=== PATIENT | female | born 1955 | race Caucasian/White ===

== ENCOUNTER 2016-11-25 06:42 | Observation (INO) ==
--- NOTE | 2016-11-25 06:48 | EKG Report ---
Test Performed on : 11/25/2016 06:40:47 AM Test Reason : SOB Blood Pressure : / mmHG Vent. Rate : 081 BPM Atrial Rate : 081 BPM P-R Int : 174 ms QRS Dur : 070 ms QT Int : 358 ms P-R-T Axes : 061 061 057 degrees QTc Int : 415 ms Normal sinus rhythm. Cannot rule out Anterior infarct , age undetermined Abnormal ECG When compared with ECG of 04-MAR-2016 08:00, Vent. rate has decreased BY 41 BPM Unconfirmed Result
[2016-11-25] MEDS ORDERED: NS 1,000 ML IV ONE (07:03)
[2016-11-25] MEDS ORDERED: SOLU-MEDROL IV ONE (07:03)
[2016-11-25 07:14] LABS: MANUAL DIFF NEEDED? NO
[2016-11-25 07:24] LABS: BASO% 0.3 % (0.0-0.8); EOS% 1.5 % (0.0-10.0); HEMATOCRIT 35.1 % (37.0-47.0); HEMOGLOBIN 12.8 g/dL (12.0-16.0); LYMPH% 18.3 % (20.5-51.1); MCH 33.4 PG (27-31); MCHC 36.5 g/dL (33-37); MCV 91.6 FL (81-99); MONO% 10.7 % (1.7-9.3); MPV 11.2 FL (7.4-10.4); NEUT% 69.2 % (42.2-75.2); PLT 123 X1000 (130-400); RBC 3.83 XMIL (4.2-5.4)
[2016-11-25 07:31] LABS: INR 1.01; PROTIME 10.6 Seconds (9.2-11.7)
[2016-11-25 07:51] LABS: AGAP 14; ALBUMIN 3.6 g/dL (3.5-5.0); ALKALINE PHOSPHATASE 83 U/L (32-104); BUN 8 mg/dL (8-22); CALCIUM 8.8 mg/dL (8.8-10.2); CHLORIDE 99 mmol/L (98-107); CK PROFILE 57 U/L (24-173); COSMO 267; GOT 38 U/L (10-30); GPT 33 U/L (10-36); MAGNESIUM 1.6 mg/dL (1.5-2.7); POTASSIUM 3.2 mmol/L (3.5-5.1); SODIUM 134 mmol/L (136-145); TCO2 21 mmol/L (25-35); TOTAL BILIRUBIN 0.67 mg/dL (0.20-1.00)
[2016-11-25 08:12] LABS: ALLEN TEST NO; BE 0.2 mmoll (-3.0-3.0); BLOOD TYPE ARTERIAL; DRAW SITE R BRACHIAL; METHB 1.9 % (0.0-1.5); O2(CT) 15.3 mL/dL (15.0-23.0); PCO2(98.6) 29 mmHg (35-45); PO2(98.6) 62 mmHg (60-100); SAMPLE BLOOD; SAO2 97.6 % (95.0-100.0); THB 11.7 g/dL (11.5-17.4)
[2016-11-25 08:13] LABS: MODALITY ROOM AIR
--- NOTE | 2016-11-25 08:18 | Diag Imaging Result Document ---
PROCEDURE NAME: CHEST-2 VIEWS - 11/25/2016 FRONTAL AND LATERAL CHEST, TWO VIEWS: COMPARISON: 09/02/2016. FINDINGS: There is a small infiltrate anteriorly in the lower right lung. I believe this is in the right middle lobe. The heart is not enlarged. The vessels are not distended. No pleural effusions. No free air beneath the diaphragm. There has been prior surgery to the lower neck. IMPRESSION: Small right basilar pneumonia.
[2016-11-25 09:59] LABS: URINE CULTURE NEEDED? NO; URINE MICRO REVIEW NEEDED? NO; URINE SOURCE CLEAN CATCH
[2016-11-25 10:20] LABS: BILIRUBIN URINE NEGATIVE (NEGATIVE); BLOOD URINE NEGATIVE (NEGATIVE); COLOR STRAW; GLUCOSE URINE NEGATIVE (NEGATIVE); LEUKOCYTES URINE NEGATIVE (NEGATIVE); NITRITE URINE NEGATIVE (NEGATIVE); PH URINE 6.5; PROTEIN URINE NEGATIVE (NEGATIVE); SP GRAVITY URINE 1.001; TURBIDITY URINE CLEAR (CLEAR); UR EPITHELIAL CELLS <10 /HPF (<10); URINE BACTERIA NEGATIVE /HPF; URINE RBC <10 /HPF (<10); URINE WBC <10 /HPF (<10); UROBILINOGEN URINE NORMAL (NORMAL)
[2016-11-25] MEDS ORDERED: KLOR-CON PO ONE (10:27)
[2016-11-25] MEDS ORDERED: LEVAQUIN PO ONE (10:36)
[2016-11-25] MEDS ORDERED: ROCEPHIN 1 GM/NS 1 GM/50 ML IVPB IV ONE (10:36)
[2016-11-25] MEDS ORDERED: LEVAQUIN 500 MG/D5W 500 MG/100 ML IVPB IV ONE (10:45)
--- NOTE | 2016-11-25 10:46 | PROVIDER DOCUMENTATION ---
This chart was entered by Matthieu Cruz Scribe, acting as scribe for Deloris Rios MD. HPI-Respiratory General - General Chief Complaint: General Adult Stated Complaint: sob Time Seen by Provider: 11/25/16 06:43 Source: patient Allergies/Adverse Reactions: Patient Allergies Allergy/AdvReac Type Severity Reaction Status Date / Time No Known Allergies Allergy Verified 03/04/16 08:44 Home Medications: Home Medication List Medication Instructions Recorded Confirmed Last Taken Type Budesonide/Formoterol Inhaler 2 puff INH BID 08/18/15 03/04/16 03/04/16 History [Symbicort 160/4.5 Microgm Inhaler] Fluticasone 50 Mcg Nasal [place] 1 spray ENRIQUE DAILY #1 bottle 08/18/15 03/04/16 Rx [Flonase] Montelukast [Singulair] 10 mg PO DAILY 08/18/15 03/04/16 03/04/16 History Hydrocodone/Acetaminophen [[place] 1 each PO BID PRN 12/08/15 03/04/16 03/03/16 History 7.5-325 Tablet] Tramadol [Ultram] 50 mg PO Q8HR PRN 12/08/15 03/04/16 03/03/16 History Albuterol 2.5MG/Ipratrop 0.5MG 3 ml INH [id number] #0 neb 01/17/16 03/04/16 Rx [Duoneb (A & A)] Budesonide/Formoterol Inhaler 2 puff INH RTBID #0 inhaler 01/17/16 03/04/16 Rx [Symbicort 160/4.5 Microgm Inhaler] Ipratropium [place] Neb [Atrovent 1 dose INH DIRECTED 03/02/16 03/04/1603/04 History Neb] Acetaminophen [Tylenol] 500 mg PO Q6H PRN PRN #0 tablet 03/07/16 Unknown Rx Codeine/Promethazine [Phenergan 1 - 2 tsp PO TID PRN PRN #7 udc 03/07/16 Unknown Rx with Codeine Liquid] Dimethicone/Oxybenzone Oral 1 gm TOP PRN PRN #0 stick 03/07/16 Unknown Rx [Blistex Medicated Levi Lip Oral] Levofloxacin [Levaquin] 500 mg PO DAILY #7 tablet 03/07/16 Unknown Rx Nicotine Patch [Nicoderm Patch] 21 mg TD DAILY #0 patch.[id number] 03/07/16 Unknown Rx Prednisone 5 mg PO DAILY #7 tablet 03/07/16 Unknown Rx - History of Present Illness-Resp Nature of Presenting Problem: patient is a 61 y/o F that presents to the ER with cough/congestion, shortness of breath, and right sided chest pain x 4 days. patient reports having cough for over a years since she had pneumonia. Patient denies fever/chills, sore throat, or earache. Hasn't been exposed to toxic vapors. Smokes a pack per day. Quality of Pain: reports: sharp Severity in ED: reports: mild, moderate Onset/Duration: reports: gradual, 4 days ago Timing: reports: still present, constant Context: denies: sports/exercise, aspiration/choking Cough Quality/Degree: reports: mild, productive cough Episode Frequency: occasional episodes Current Respiratory Medication Therapy: Initiated see nurses note Modifying Factors: worse with: coughing Associated Symptoms: reports: chest pain/soreness, cough, shortness of breath, short of breath. denies: flu-like symptoms, nasal congestion, nasal drainage Similar Symptoms Previously?: Yes Recently seen or treated by another doctor?: No Review of Systems - Adult - REVIEW OF SYSTEMS - ADULT Constitutional: denies: chills, fever Eyes: denies: decreased vision, blurred vision, double vision Ears, Nose, Mouth & Throat: denies: ear discharge, ear pain, sinus problem, throat pain, throat swelling Cardiovascular: reports: chest pain (right sided). denies: palpitations, syncope Respiratory: reports: cough, shortness of breath Gastrointestinal: reports: no symptoms reported Genitourinary: reports: no symptoms reported Musculoskeletal: reports: no symptoms reported Integumentary: reports: no symptoms reported Neurological: reports: no symptoms reported Psychiatric: reports: no symptoms reported Endocrine: reports: no symptoms reported Hematologic/Lymphatic: reports: no symptoms reported Allergic/Immunologic: reports: no symptoms reported All Other Systems: Reviewed and Negative Past History - Adult - PAST MEDICAL HISTORY-ADULT Review of Records: reports: Old Records Reviewed, Nursing Assessment Review, Medications Reviewed Respiratory: reports: COPD - PRIOR SURGERIES/PROCEDURES Surgical/Procedure History: reports: hysterectomy, back/neck (neck) - PRIOR HOSPITALIZATIONS Prior Hospitalizations: reports: none - IMMUNIZATION STATUS Childhood Immunizations: See Nurse Assessment Flu Vaccine: See Nurse Assessment - FAMILY HISTORY Family History: reviewed, not pertinent - SOCIAL HISTORY Smoking: cigarettes, less than 1 pack/day Alcohol Use Frequency: every day Number of drinks per typical drinking period:: 3-4 drinks Living Situation: family Physical Exam-General - PHYSICAL EXAM-ADULT Initial Vital Signs Reviewed: Yes - CONSTITUTIONAL General Appearance: alert, no apparent distress, thin - EYES Eyes: PERRL/EOMI, pink conjunctivae - HEAD, EARS, NOSE, MOUTH & THROAT HENMT: normocephalic/atraumatic, moist mucous membranes, normal ENT inspection - NECK Neck: full range of motion, normal inspection - RESPIRATORY Respiratory: no respiratory distress, no accessory muscle use, rhonchi, increased rate - CARDIOVASCULAR Cardiovascular: regular rate, rhythm, no edema, no murmur - GASTROINTESTINAL (ABDOMEN) Abdominal Exam: normal bowel sounds, non tender, soft, no organomegaly, no pulsatile mass - MUSCULOSKELETAL Back Exam: no CVA tenderness, no vertebral tenderness Extremity: normal range of motion, normal inspection, no pedal edema - SKIN Integumentary: normal color, warm/dry - NEUROLOGIC Neurologic: grossly normal, no motor/sensory deficits - PSYCHIATRIC Psych/Mental Status: normal mood/affect, oriented x 3 Progress - PLAN OF CARE/RESULTS Progress/Plan/Lab Results: Vital Signs - 8 hr 11/25/16 06:50 11/25/16 07:53 11/25/16 08:42 Temperature 98.8 F Pulse Rate 82 79 80 Respiratory Rate 19 28 H 26 H Blood Pressure 117/66 115/57 111/68 O2 Sat by Pulse Oximetry 98 94 L 95 Laboratory Results - last 24 hr 11/25/16 11/25/16 11/25/16 06:50 06:50 06:50 WBC 6.55 RBC 3.83 L Hgb 12.8 Hct 35.1 L MCV 91.6 MCH 33.4 H MCHC 36.5 RDW Std Deviation 11.9 Plt Count 123 L MPV 11.2 H Immature Gran % (Auto) 0.0 Neut % (Auto) 69.2 Lymph % (Auto) 18.3 L [place] % (Auto) 10.7 H Eos % (Auto) 1.5 Baso % (Auto) 0.3 Immature Gran # (Auto) 0.00 Neut # (Auto) 4.53 Lymph # (Auto) 1.20 [place] # (Auto) 0.70 H Eos # (Auto) 0.10 Baso # (Auto) 0.02 PT INR PTT (Actin FS) D-Dimer 1.78 H Specimen Type Sample Site pH pCO2 pO2 HCO3 Base Excess Oxyhemoglobin ABG O2 Sat (Calculated) ABG O2 Saturation ABG Carboxyhemoglobin ABG Methemoglobin Pablo Test A-a O2 Difference Total Hemoglobin Lactate Blood Gas Modality FiO2 % Sodium 134 L Potassium 3.2 L Chloride 99 Carbon Dioxide 21 L Anion Gap 14 BUN 8 Creatinine 0.6 Estimated GFR/1.73 m2 > 60 BUN/Creatinine Ratio 13 Glucose 100 Calculated Osmolality 267 Calcium 8.8 Magnesium 1.6 Total Bilirubin 0.67 AST 38 H ALT 33 Alkaline Phosphatase 83 Creatine Kinase 57 Troponin T Stp-E-Lexjizuwxpg Pept Total Protein 7.0 Albumin 3.6 Globulin 3.4 Albumin/Globulin Ratio 1.1 Plasma Lactate Urine Color Urine Turbidity Urine pH Ur Specific [place] Urine Protein Ur Glucose (Stick) Ur Ketones (Stick) Urine Blood Urine Nitrite Urine Bilirubin Urobilinogen Dipstick Urine Leukocytes Urine WBC (Auto) Urine RBC (Auto) U Epithel Cells (Auto) Urine Bacteria (Auto) 11/25/16 11/25/16 11/25/16 06:50 06:50 06:50 WBC RBC Hgb Hct MCV MCH MCHC RDW Std Deviation Plt Count MPV Immature Gran % (Auto) Neut % (Auto) Lymph % (Auto) [place] % (Auto) Eos % (Auto) Baso % (Auto) Immature Gran # (Auto) Neut # (Auto) Lymph # (Auto) [place] # (Auto) Eos # (Auto) Baso # (Auto) PT 10.6 INR 1.01 PTT (Actin FS) 28.0 D-Dimer Specimen Type Sample Site pH pCO2 pO2 HCO3 Base Excess Oxyhemoglobin ABG O2 Sat (Calculated) ABG O2 Saturation ABG Carboxyhemoglobin ABG Methemoglobin Pablo Test A-a O2 Difference Total Hemoglobin Lactate Blood Gas Modality FiO2 % Sodium Potassium Chloride Carbon Dioxide Anion Gap BUN Creatinine Estimated GFR/1.73 m2 BUN/Creatinine Ratio Glucose Calculated Osmolality Calcium Magnesium Total Bilirubin AST ALT Alkaline Phosphatase Creatine Kinase Troponin T < 0.010 Fjx-T-Louqeceectp Pept 56 Total Protein Albumin Globulin Albumin/Globulin Ratio Plasma Lactate Urine Color Urine Turbidity Urine pH Ur Specific [place] Urine Protein Ur Glucose (Stick) Ur Ketones (Stick) Urine Blood Urine Nitrite Urine Bilirubin Urobilinogen Dipstick Urine Leukocytes Urine WBC (Auto) Urine RBC (Auto) U Epithel Cells (Auto) Urine Bacteria (Auto) 11/25/16 11/25/16 11/25/16 07:32 08:00 09:35 WBC RBC Hgb Hct MCV MCH MCHC RDW Std Deviation Plt Count MPV Immature Gran % (Auto) Neut % (Auto) Lymph % (Auto) [place] % (Auto) Eos % (Auto) Baso % (Auto) Immature Gran # (Auto) Neut # (Auto) Lymph # (Auto) [place] # (Auto) Eos # (Auto) Baso # (Auto) PT INR PTT (Actin FS) D-Dimer Specimen Type ARTERIAL Sample Site R BRACHIAL pH 7.50 H pCO2 29 L pO2 62 HCO3 25.0 Base Excess 0.2 Oxyhemoglobin 92.9 L ABG O2 Sat (Calculated) 15.3 ABG O2 Saturation 97.6 ABG Carboxyhemoglobin 2.90 H ABG Methemoglobin 1.9 H Pablo Test NO A-a O2 Difference 51.0 Total Hemoglobin 11.7 Lactate 0.70 Blood Gas Modality ROOM AIR FiO2 % 21.0 Sodium Potassium Chloride Carbon Dioxide Anion Gap BUN Creatinine Estimated GFR/1.73 m2 BUN/Creatinine Ratio Glucose Calculated Osmolality Calcium Magnesium Total Bilirubin AST ALT Alkaline Phosphatase Creatine Kinase Troponin T Zji-B-Wzlkjlpbdee Pept Total Protein Albumin Globulin Albumin/Globulin Ratio Plasma Lactate 1.0 Urine Color STRAW Urine Turbidity CLEAR Urine pH 6.5 Ur Specific [place] 1.001 Urine Protein NEGATIVE Ur Glucose (Stick) NEGATIVE Ur Ketones (Stick) NEGATIVE Urine Blood NEGATIVE Urine Nitrite NEGATIVE Urine Bilirubin NEGATIVE Urobilinogen Dipstick NORMAL Urine Leukocytes NEGATIVE Urine WBC (Auto) <10 Urine RBC (Auto) <10 U Epithel Cells (Auto) <10 Urine Bacteria (Auto) NEGATIVE Orders Category Date Time Status Cardiac Monitoring DIRECTED Care 11/25/16 06:57 Active Saline Loc NOW Care 11/25/16 06:57 Active ANGIOGRAM/PULMONARY ARTERIES [CT] Stat Exams 11/25/16 09:19 Taken CHEST-2 VIEWS [RAD] Stat Exams 11/25/16 06:57 Completed ABG [RESP] Routine Lab 11/25/16 08:00 Completed BLOOD CULTURE [BLDCUL] Stat Lab 11/25/16 06:50 Results CBC WITH ELECTRONIC DIFF [HEME] Stat Lab 11/25/16 06:50 Completed CK PROFILE [SP CHEM] Stat Lab 11/25/16 06:50 Completed COMPREHENSIVE METABOLIC PANEL [CHEM] Stat Lab 11/25/16 06:50 Completed D-DIMER [CHEM] Stat Lab 11/25/16 06:50 Completed LACTATE, PLASMA [CHEM] Stat Lab 11/25/16 07:32 Completed MAGNESIUM [CHEM] Stat Lab 11/25/16 06:50 Completed PRO B-NATRIURETIC PEPTIDE Stat Lab 11/25/16 06:50 Completed PROTIME WITH INR [COAG] Stat Lab 11/25/16 06:50 Completed PTT [COAG] Stat Lab 11/25/16 06:50 Completed TROPONIN T Stat Lab 11/25/16 06:50 Completed UA NIMS W/REFLEX CULT [URINALYSIS] Stat Lab 11/25/16 09:35 Completed 0.9% Sodium Chloride Inj [Ns] 1,000 ml Med 11/25/16 07:03 Discontinued IV 999 mls/hr Methylprednisolone Sod Succ [Solu-Medrol] Med 11/25/16 07:03 Discontinued 125 mg IV NOW ONE Potassium Chloride E.r. [Klor-Con] Med 11/25/16 10:27 Discontinued 40 meq PO NOW ONE EKG [EKG] Stat Ther 11/25/16 06:42 Draft EKG [EKG] Stat Ther 11/25/16 06:57 Ordered will be paged for admission Orders Category Date Time Status Cardiac Monitoring DIRECTED Care 11/25/16 06:57 Active Saline Loc NOW Care 11/25/16 06:57 Active ANGIOGRAM/PULMONARY ARTERIES [CT] Stat Exams 11/25/16 09:19 Taken CHEST-2 VIEWS [RAD] Stat Exams 11/25/16 06:57 Completed ABG [RESP] Routine Lab 11/25/16 08:00 Completed BLOOD CULTURE [BLDCUL] Stat Lab 11/25/16 06:50 Results CBC WITH ELECTRONIC DIFF [HEME] Stat Lab 11/25/16 06:50 Completed CK PROFILE [SP CHEM] Stat Lab 11/25/16 06:50 Completed COMPREHENSIVE METABOLIC PANEL [CHEM] Stat Lab 11/25/16 06:50 Completed D-DIMER [CHEM] Stat Lab 11/25/16 06:50 Completed LACTATE, PLASMA [CHEM] Stat Lab 11/25/16 07:32 Completed MAGNESIUM [CHEM] Stat Lab 11/25/16 06:50 Completed PRO B-NATRIURETIC PEPTIDE Stat Lab 11/25/16 06:50 Completed PROTIME WITH INR [COAG] Stat Lab 11/25/16 06:50 Completed PTT [COAG] Stat Lab 11/25/16 06:50 Completed TROPONIN T Stat Lab 11/25/16 06:50 Completed UA NIMS W/REFLEX CULT [URINALYSIS] Stat Lab 11/25/16 09:35 Completed 0.9% Sodium Chloride Inj [Ns] 1,000 ml Med 11/25/16 07:03 Discontinued IV 999 mls/hr CefTRIAXONE 1 GM/NS [Rocephin 1 gm/Ns] Med 11/25/16 10:36 Active 1 gm in 50 ml IV NOW Levofloxacin [Levaquin] Med 11/25/16 10:36 Discontinued 500 mg PO NOW ONE Methylprednisolone Sod Succ [Solu-Medrol] Med 11/25/16 07:03 Discontinued 125 mg IV NOW ONE Potassium Chloride E.r. [Klor-Con] Med 11/25/16 10:27 Discontinued 40 meq PO NOW ONE EKG [EKG] Stat Ther 11/25/16 06:42 Draft EKG [EKG] Stat Ther 11/25/16 06:57 Ordered Vital Signs Temp Pulse Resp BP Pulse Ox 11/25/16 08:42 80 26 H 111/68 95 11/25/16 07:53 79 28 H 115/57 94 L 11/25/16 06:50 98.8 F 82 19 117/66 98 No Known Allergies Allergy (Verified 03/04/16 08:44) Budesonide/Formoterol Inhaler [Symbicort 160/4.5 Microgm Inhaler] 2 puff INH BID 08/18/15 Fluticasone 50 Mcg Nasal [place] [Flonase] 1 spray ENRIQUE DAILY #1 bottle 08/18/15 Montelukast [Singulair] 10 mg PO DAILY 08/18/15 Hydrocodone/Acetaminophen [[place] 7.5-325 Tablet] 1 each PO BID PRN 12/08/15 Tramadol [Ultram] 50 mg PO Q8HR PRN 12/08/15 Albuterol 2.5MG/Ipratrop 0.5MG [Duoneb (A & A)] 3 ml INH [id number] #0 neb Budesonide/Formoterol Inhaler [Symbicort 160/4.5 Microgm Inhaler] 2 puff INH RTBID #0 inhaler 01/17/16 Ipratropium [place] Neb [Atrovent Neb] 1 dose INH DIRECTED 03/02/16 Acetaminophen [Tylenol] 500 mg PO Q6H PRN PRN #0 tablet 03/07/16 Codeine/Promethazine [Phenergan with Codeine Liquid] 1 - 2 tsp PO TID PRN PRN # 7 udc 03/07/16 Dimethicone/Oxybenzone Oral [Blistex Medicated [place] Lip Oral] 1 gm TOP PRN PRN #0 stick 03/07/16 Levofloxacin [Levaquin] 500 mg PO DAILY #7 tablet 03/07/16 Nicotine Patch [Nicoderm Patch] 21 mg TD DAILY #0 patch.td24 03/07/16 Prednisone 5 mg PO DAILY #7 tablet 03/07/16 Laboratory 11/25/16 11/25/16 11/25/16 09:35 08:00 07:32 WBC RBC Hgb Hct MCV MCH MCHC RDW Std Deviation Plt Count MPV Immature Gran % (Auto) Neut % (Auto) Lymph % (Auto) [place] % (Auto) Eos % (Auto) Baso % (Auto) Immature Gran # (Auto) Neut # (Auto) Lymph # (Auto) [place] # (Auto) Eos # (Auto) Baso # (Auto) PT INR PTT (Actin FS) D-Dimer Specimen Type ARTERIAL Sample Site R BRACHIAL pH 7.50 H pCO2 29 L pO2 62 HCO3 25.0 Base Excess 0.2 Oxyhemoglobin 92.9 L ABG O2 Sat (Calculated) 15.3 ABG O2 Saturation 97.6 ABG Carboxyhemoglobin 2.90 H ABG Methemoglobin 1.9 H Pablo Test NO A-a O2 Difference 51.0 Total Hemoglobin 11.7 Lactate 0.70 Blood Gas Modality ROOM AIR FiO2 % 21.0 Sodium Potassium Chloride Carbon Dioxide Anion Gap BUN Creatinine Estimated GFR/1.73 m2 BUN/Creatinine Ratio Glucose Calculated Osmolality Calcium Magnesium Total Bilirubin AST ALT Alkaline Phosphatase Creatine Kinase Troponin T Gxc-T-Pxjrrjnytfh Pept Total Protein Albumin Globulin Albumin/Globulin Ratio Plasma Lactate 1.0 Urine Color STRAW Urine Turbidity CLEAR Urine pH 6.5 Ur Specific [place] 1.001 Urine Protein NEGATIVE Ur Glucose (Stick) NEGATIVE Ur Ketones (Stick) NEGATIVE Urine Blood NEGATIVE Urine Nitrite NEGATIVE Urine Bilirubin NEGATIVE Urobilinogen Dipstick NORMAL Urine Leukocytes NEGATIVE Urine WBC (Auto) <10 Urine RBC (Auto) <10 U Epithel Cells (Auto) <10 Urine Bacteria (Auto) NEGATIVE 11/25/16 11/25/16 11/25/16 06:50 06:50 06:50 WBC RBC Hgb Hct MCV MCH MCHC RDW Std Deviation Plt Count MPV Immature Gran % (Auto) Neut % (Auto) Lymph % (Auto) [place] % (Auto) Eos % (Auto) Baso % (Auto) Immature Gran # (Auto) Neut # (Auto) Lymph # (Auto) [place] # (Auto) Eos # (Auto) Baso # (Auto) PT 10.6 INR 1.01 PTT (Actin FS) 28.0 D-Dimer Specimen Type Sample Site pH pCO2 pO2 HCO3 Base Excess Oxyhemoglobin ABG O2 Sat (Calculated) ABG O2 Saturation ABG Carboxyhemoglobin ABG Methemoglobin Pablo Test A-a O2 Difference Total Hemoglobin Lactate Blood Gas Modality FiO2 % Sodium Potassium Chloride Carbon Dioxide Anion Gap BUN Creatinine Estimated GFR/1.73 m2 BUN/Creatinine Ratio Glucose Calculated Osmolality Calcium Magnesium Total Bilirubin AST ALT Alkaline Phosphatase Creatine Kinase Troponin T < 0.010 Xuy-E-Fqpdyagkfbs Pept 56 Total Protein Albumin Globulin Albumin/Globulin Ratio Plasma Lactate Urine Color Urine Turbidity Urine pH Ur Specific [place] Urine Protein Ur Glucose (Stick) Ur Ketones (Stick) Urine Blood Urine Nitrite Urine Bilirubin Urobilinogen Dipstick Urine Leukocytes Urine WBC (Auto) Urine RBC (Auto) U Epithel Cells (Auto) Urine Bacteria (Auto) 11/25/16 11/25/16 11/25/16 06:50 06:50 06:50 WBC 6.55 RBC 3.83 L Hgb 12.8 Hct 35.1 L MCV 91.6 MCH 33.4 H MCHC 36.5 RDW Std Deviation 11.9 Plt Count 123 L MPV 11.2 H Immature Gran % (Auto) 0.0 Neut % (Auto) 69.2 Lymph % (Auto) 18.3 L [place] % (Auto) 10.7 H Eos % (Auto) 1.5 Baso % (Auto) 0.3 Immature Gran # (Auto) 0.00 Neut # (Auto) 4.53 Lymph # (Auto) 1.20 [place] # (Auto) 0.70 H Eos # (Auto) 0.10 Baso # (Auto) 0.02 PT INR PTT (Actin FS) D-Dimer 1.78 H Specimen Type Sample Site pH pCO2 pO2 HCO3 Base Excess Oxyhemoglobin ABG O2 Sat (Calculated) ABG O2 Saturation ABG Carboxyhemoglobin ABG Methemoglobin Pablo Test A-a O2 Difference Total Hemoglobin Lactate Blood Gas Modality FiO2 % Sodium 134 L Potassium 3.2 L Chloride 99 Carbon Dioxide 21 L Anion Gap 14 BUN 8 Creatinine 0.6 Estimated GFR/1.73 m2 > 60 BUN/Creatinine Ratio 13 Glucose 100 Calculated Osmolality 267 Calcium 8.8 Magnesium 1.6 Total Bilirubin 0.67 AST 38 H ALT 33 Alkaline Phosphatase 83 Creatine Kinase 57 Troponin T Tiz-R-Ykpsifxyqgx Pept Total Protein 7.0 Albumin 3.6 Globulin 3.4 Albumin/Globulin Ratio 1.1 Plasma Lactate Urine Color Urine Turbidity Urine pH Ur Specific [place] Urine Protein Ur Glucose (Stick) Ur Ketones (Stick) Urine Blood Urine Nitrite Urine Bilirubin Urobilinogen Dipstick Urine Leukocytes Urine WBC (Auto) Urine RBC (Auto) U Epithel Cells (Auto) Urine Bacteria (Auto) pt updated on plan of care, will be admitted to 's service, pt in agreement with POC Result Diagrams: 11/25/16 06:50 11/25/16 06:50 - EKG 1 Time of EKG reading by physician:: 06:40 EKG Read and Signed by:: Deloris Rios EKG Interpretation (*Must complete 3 of following elements*): Abnormal Rate: 81 Rhythm: NSR [place]: normal QRS: normal [place] Interval: normal ST Wave: non-specific ST changes - XRAY 1 XRAY Study: Chest Impression: Abnormal XRAY Interpretation: right base pneumonia - CT/MRI 1 CT Study: Angiogram (PE Study) Impression: Abnormal CT Results: RML pneumonia, mild RUL infiltrate, mild COPD, no evidence PE - CONSULTS/PCP/HOSPITALIST Notification #1 *Consult/PCP/Hospitalist*: Time Discussed: 10:40 Reason/Comments: Pneumonia Shortness of breath Consult Disposition: Admit ( will place quick admit orders) Departure - Departure Time of Disposition Decision: 10:40 DIAGNOSIS: Tobacco abuse Dyspnea Qualifiers: Dyspnea type: shortness of breath Qualified Code(s): R06.02 - Shortness of breath Pneumonia involving right lung Qualifiers: Pneumonia type: due to unspecified organism Lung location: middle lobe of lung Qualified Code(s): J18.1 - Lobar pneumonia, unspecified organism Disposition: ADMITTED INPATIENT 09 Certified Medical Emergency: Emergent Condition: Stable Referrals and Follow-Ups: Naveed Lozano MD [Primary Care Provider] - This chart was documented by the indicated scribe, (Matthieu Cruz, Scribe) and accurately reflects the services I performed and decisions made by , Deloris Rios MD, as attested by the provider's signature.
--- NOTE | 2016-11-25 10:59 | Diag Imaging Result Document ---
PROCEDURE NAME: ANGIOGRAM/PULMONARY ARTERIES - 11/25/2016 CT ANGIOGRAM OF PULMONARY ARTERY WITH CONTRAST: Exam performed with intravenous contrast. A dose- reduction protocol was used. COMPARISON: 03/04/2016. FINDINGS: There are no filling defects identified in the pulmonary arteries. There is no indication of aortic dissection. There are mild COPD changes. There is consolidation at the anterior right middle lobe suspicious for pneumonia. There is mild infiltrate in the inferior right upper lobe. There is subsegmental atelectasis of the bilateral lung bases. There is a tiny right pleural effusion. There is no pneumothorax seen. There is slightly prominent right hilar and mediastinal lymph nodes which may be reactive. Lymph nodes are slightly less prominent compared to the previous exam. Included sections of upper abdomen show somewhat prominent spleen similar to the previous exam, although the entire spleen is not included on the exam. IMPRESSION: 1. No evidence of pulmonary embolism. 2. Mild COPD changes. Right middle lobe pneumonia. Mild infiltrate at inferior right upper lobe. Tiny right pleural effusion. 3. Slightly prominent mediastinal lymph nodes, which may be reactive. Somewhat prominent spleen.
[2016-11-25] MEDS ORDERED: BENADRYL IV ONE (11:43)
[2016-11-25] MEDS ORDERED: ZOFRAN IV ONE (11:53)
[2016-11-25] MEDS ORDERED: NICODERM PATCH TD SCH (14:30)
[2016-11-25] MEDS ORDERED: BLISTEX MEDICATED BERRY LIP BALM TOP PRN (19:20)
[2016-11-25] MEDS ORDERED: ULTRAM PO PRN (19:20)
[2016-11-25] MEDS ORDERED: NORCO-7.5 PO PRN (19:20)
[2016-11-25] MEDS ORDERED: TYLENOL PO PRN (19:20)
[2016-11-25] MEDS: SYMBICORT 160/4.5 MICROGM INHALER INH SCH (19:30)
[2016-11-25] MEDS: ZITHROMAX 500 MG/NS 500 MG/250 ML IVPB IV SCH (21:36)
[2016-11-25] MEDS: SOLU-MEDROL IV SCH (21:36)
[2016-11-25] MEDS: DUONEB (A & A) INH SCH (22:30)
[2016-11-26] MEDS: DUONEB (A & A) INH SCH ×4 (03:00→20:12)
[2016-11-26] MEDS: SOLU-MEDROL IV SCH ×2 (03:06→13:24)
--- NOTE | 2016-11-26 06:57 | HISTORY AND PHYSICAL ---
HISTORY OF PRESENT ILLNESS: Ms. Mares is a 61-year-old white female, a known case of COPD, who started having severe chest pain in the right upper chest. She also had shortness of breath, cough with expectoration, low-grade fever. She was very short of breath. She came to the emergency room, and she was found to have respiratory alkalosis, along with the presence of pneumonia. She has a known case of COPD. PAST SURGICAL HISTORY: Reveals history of cervical disk surgery, cataract surgery, and hysterectomy in the past. SOCIAL HISTORY: She is still a smoker, smokes about less than 1 pack of cigarettes per day. Does not drink. ALLERGIES: She is allergic to ceftriaxone sodium. OTHER DETAILS OF PERSONAL, PAST AND FAMILY HISTORY: Noncontributory. MEDICATIONS: Her medications that she takes on a regular basis include budesonide and formoterol inhaler, that is, Symbicort, dimethicone, 1 gram topical p.r.n., fluticasone daily, [place] 7.5, montelukast, nicotine patch, tramadol, Benadryl. REVIEW OF SYSTEMS: General: She has generalized weakness. Pulmonary: Cough with expectoration, shortness of breath. Gastrointestinal: Negative. Genitourinary: Negative. Endocrine: Negative. Breasts: Negative. Neurological: Unremarkable. PHYSICAL EXAMINATION: VITAL SIGNS: Reveal temperature normal, pulse 71 per minute, respiratory rate 34 per minute, blood pressure was 100/61. HEENT AND NECK: Head normocephalic. PERRLA. Fundus examination not done. The neck is supple. JVP normal. ENT examination unremarkable. There is no evidence of lymphadenopathy or thyroid enlargement. EXTREMITIES: There is no evidence of pedal edema, calf tenderness, anemia, cyanosis, or clubbing. Pedal pulses are felt. BREASTS: Exam not done. CHEST: Normal to inspection. LUNGS: Reveal bilateral expiratory wheezing with occasional rales on the right mid zone. CARDIAC: PMI in the normal position. Heart sounds normal. No murmur, gallop, or rub noted. ABDOMEN: Nondistended. Hernial orifices normal. No guarding, rigidity, free fluid, masses, or organomegaly. Bowel sounds normal. RECTAL: Deferred. CENTRAL NERVOUS SYSTEM: Higher functions normal. Cranial nerves normal. Motor and sensory system examination unremarkable. Deep tendon reflexes normal. Plantars downgoing. Skull and spine examination normal for age. No cerebellar signs or signs of meningeal irritation. LOCOMOTOR: Exam unremarkable. SKIN: Exam unremarkable. LABORATORY DATA: CBC was unremarkable. D-dimer level was elevated; it was 1.75. Blood gases revealed pH of 7.5, pCO2 was 79, PO2 was 62 indicating respiratory alkalosis. Potassium was somewhat low; it was 3.2. Glucose was 100. AST was slightly elevated. The proBNP was negative. Troponin was negative. Urinalysis was unremarkable. Chest x-ray and pulmonary arteriogram are negative for PTE; however, she had infiltrate in the right upper lobe. IMPRESSION: 1. Pneumonia. 2. Chronic obstructive pulmonary disease. 3. Chest pain. 4. The patient is a heavy smoker. 5. She has a degenerative arthritis. PLAN: The patient has pneumonia and COPD. We will follow her. cc: Naveed Lozano MD
[2016-11-26] MEDS: SYMBICORT 160/4.5 MICROGM INHALER INH SCH ×2 (07:50→20:12)
[2016-11-26] MEDS: NICODERM PATCH TD SCH (10:12)
[2016-11-26] MEDS: SINGULAIR PO SCH (10:12)
[2016-11-26] MEDS: KLOR-CON PO SCH ×3 (10:14→18:32)
[2016-11-26] MEDS: PHENERGAN WITH CODEINE LIQUID PO PRN (10:32)
[2016-11-26] MEDS: FLONASE NAS SCH (10:32)
[2016-11-26] MEDS: LEVAQUIN 500 MG/D5W 500 MG/100 ML IVPB IV SCH (10:57)
--- NOTE | 2016-11-26 12:13 | PROGRESS NOTE ---
DATE: 11/26/2016 SUBJECTIVE: Ms. Mares is having persistent cough. She wants to go home. I told her the chest x- ray has to show improvement; we will repeat it in the morning. She has bilateral wheezing with some occasional rales on the right mid zone. Overall condition is otherwise unchanged. She is afebrile. Vital signs are stable. She is alert. We will continue with the current management. cc: Naveed Lozano MD
[2016-11-27] MEDS: ZITHROMAX 500 MG/NS 500 MG/250 ML IVPB IV SCH (00:08)
[2016-11-27] MEDS: SOLU-MEDROL IV SCH ×3 (00:08→18:32)
[2016-11-27] MEDS: PHENERGAN WITH CODEINE LIQUID PO PRN (00:11)
[2016-11-27] MEDS: DUONEB (A & A) INH SCH ×4 (03:38→20:05)
[2016-11-27 07:35] LABS: AGAP 14; BUN 10 mg/dL (8-22); CALCIUM 9.1 mg/dL (8.8-10.2); CHLORIDE 108 mmol/L (98-107); COSMO 290; POTASSIUM 4.3 mmol/L (3.5-5.1); SODIUM 144 mmol/L (136-145); TCO2 22 mmol/L (25-35)
[2016-11-27] MEDS: SYMBICORT 160/4.5 MICROGM INHALER INH SCH ×2 (08:21→20:05)
--- NOTE | 2016-11-27 08:25 | Diag Imaging Result Document ---
PROCEDURE NAME: CHEST-2 VIEWS - 11/27/2016 PA AND LATERAL RADIOGRAPH OF THE CHEST: COMPARISON: 11/25/2016. FINDINGS: The focal infiltrate in the right lower lung zone, likely in the right middle lobe, has improved and is less dense than the previous study. No new consolidations are identified. Cardiac silhouette is stable. IMPRESSION: Interval improvement of the small right lower lung zone infiltrate.
[2016-11-27] MEDS: NICODERM PATCH TD SCH (10:32)
[2016-11-27] MEDS: KLOR-CON PO SCH ×3 (10:32→18:32)
[2016-11-27] MEDS: SINGULAIR PO SCH (10:32)
[2016-11-27] MEDS: FLONASE NAS SCH (10:33)
[2016-11-27] MEDS: LEVAQUIN 500 MG/D5W 500 MG/100 ML IVPB IV SCH (10:34)
--- NOTE | 2016-11-27 13:10 | PROGRESS NOTE ---
DATE: 11/27/2016 SUBJECTIVE: Ms. Mares is doing better. Her lung sounds are somewhat better. She still has pneumonia on the right side. Chest x-ray shows improvement in the pneumonia. Potassium is normal now. She feels much better. We will continue the IV antibiotics. cc: Naveed Lozano MD
[2016-11-28] MEDS: ZITHROMAX 500 MG/NS 500 MG/250 ML IVPB IV SCH (01:04)
[2016-11-28] MEDS: SOLU-MEDROL IV SCH ×2 (01:04→09:43)
[2016-11-28] MEDS: DUONEB (A & A) INH SCH ×2 (03:27→08:54)
[2016-11-28 06:21] VITALS: BP 130/54
[2016-11-28] MEDS: SYMBICORT 160/4.5 MICROGM INHALER INH SCH (08:54)
[2016-11-28] MEDS: KLOR-CON PO SCH (09:43)
[2016-11-28] MEDS: NICODERM PATCH TD SCH (09:43)
[2016-11-28] MEDS: FLONASE NAS SCH (09:43)
[2016-11-28] MEDS: SINGULAIR PO SCH (09:44)
[2016-11-28] MEDS: LEVAQUIN 500 MG/D5W 500 MG/100 ML IVPB IV SCH (10:27)
--- NOTE | 2016-11-28 11:38 | PROGRESS NOTE ---
DATE: 11/28/2016 Ms. Mares is recovering from pneumonia, which is improved on the current chest x-ray; however, it has not cleared up. She has severe COPD. She is requesting to go home. Will discharge her today with antibiotics. -5 cc: Naveed Lozano MD
--- NOTE | 2016-11-28 18:00 | DISCHARGE SUMMARY ---
ADMISSION DATE: 11/25/2016 DISCHARGE DATE: 11/28/2016 HOSPITAL COURSE: Ms. Mares who is a 61-year-old white female, was admitted with chest pain, pneumonia on the right side. LABORATORY DATA: In the hospital, pulmonary arteriogram was performed which revealed no evidence of pulmonary embolism, mild COPD changes, right middle lobe pneumonia, mild infiltrate in the right upper lobe also. Chest x-ray. Her initial x-ray showed a small right basilar pneumonia. Repeat chest x-ray showed some improvement in the pneumonia. Other lab data revealed CBC was unremarkable. D-dimer was 1.78. There was positive respiratory alkalosis. Electrolytes revealed hypokalemia, potassium was 3.2, repeat potassium was 4.3. Urinalysis was negative. She was treated with IV Levaquin as well as azithromycin which she has received for at least 3-4 days. She is feeling better. Will discharge her with Levaquin, potassium and prednisone. I will see her in the office in about 7 days for followup visit. FINAL DIAGNOSES: 1. Pneumonia. 2. Chronic obstructive pulmonary disease. 3. Hypokalemia. Patient requesting to go home today. cc: Naveed Lozano MD
== END 2016-11-28 12:33 | disposition home or self-care (01) ==
LOC: ED 06:42 → INTOOBSV 12:13 → EDIPHOLD 12:13 → 3N 20:45
PROVIDERS: ADMIT Internal Medicine; ATTEND Internal Medicine

== ENCOUNTER 2017-03-01 15:22 | Inpatient (IN) ==
[2017-03-01] MEDS ORDERED: SOLU-MEDROL ONE (15:28)
[2017-03-01] MEDS ORDERED: BENADRYL ONE (15:29)
[2017-03-01] MEDS ORDERED: SODIUM CHLORIDE 0.9% 10 ML ONE (15:29)
[2017-03-01] MEDS ORDERED: PEPCID ONE (15:29)
[2017-03-01] MEDS ORDERED: SODIUM CHLORIDE 0.9% INJ ONE (15:30)
[2017-03-01] MEDS ORDERED: SOLU-MEDROL IV ONE (15:30)
[2017-03-01] MEDS ORDERED: XOPENEX NEB INH ONE (15:30)
[2017-03-01] MEDS ORDERED: BENADRYL IV ONE (15:30)
[2017-03-01] MEDS ORDERED: PEPCID IV ONE (15:30)
[2017-03-01] MEDS ORDERED: NS NEB INH SCH (15:30)
[2017-03-01 15:54] LABS: BASO% 0.4 % (0.0-0.8); EOS# 0.25 X1000 (0.0-0.7); EOS% 0.9 % (0.0-10.0); HEMATOCRIT 44.6 % (37.0-47.0); HEMOGLOBIN 15.5 g/dL (12.0-16.0); IMM GRAN# 1.11 X1000 (0.0-0.04); LYMPH# 6.29 X1000 (1.2-3.4); LYMPH% 22.8 % (20.5-51.1); MANUAL DIFF NEEDED? NO; MCH 32.6 PG (27-31); MCHC 34.8 g/dL (33-37); MCV 93.7 FL (81-99); MONO# 1.34 X1000 (0.11-0.59); MONO% 4.9 % (1.7-9.3); MPV 10.9 FL (7.4-10.4); PLT 165 X1000 (130-400); RBC 4.76 XMIL (4.2-5.4)
--- NOTE | 2017-03-01 16:00 | PROVIDER DOCUMENTATION ---
This chart was entered by Matthieu Cruz Scribe, acting as scribe for Myles Dawson MD. HPI-Critical Care <Sj Mortensen - Last Filed: 03/01/17 16:47> - General Patient arrived via EMS?: Yes Source: patient, EMS Unable to obtain history due to:: urgency - History of Present Illness-Critical Care Location of Pain/Injury: reports: chest Quality of Pain: reports: tightness Severity in ED: reports: severe Onset/Duration: reports: abrupt, just prior to arrival Timing: reports: improving EMS Initial Findings:: alert Pre-hospital Treatment: Initiated CPR, Initiated other (asa, nitro) Associated Symptoms: reports: chest pain, rash, shortness of breath. 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 Witnessed arrest?: Yes Noted by:: nurse Bystander CPR?: Yes Down-time before ACLS?: see above Reason for Code Blue?: full arrest CPR initiated before doctor arrival?: Yes <Myles Dawson - Last Filed: 03/01/17 16:48> - General Chief Complaint: Heart Alert Stated Complaint: POSS ACUTE LA Time Seen by Provider: 03/01/17 15:22 Allergies/Adverse Reactions: Allergies Allergy/AdvReac Type Severity Reaction Status Date / Time ceftriaxone sodium * AdvReac HIVES Verified 11/25/16 12:11 [From Rocephin] Home Medications: Home Medication List Medication Instructions Recorded Confirmed Last Taken Type Hydrocodone/Acetaminophen [[place] 1 each PO BID PRN 12/08/15 03/01/17 03/01/17 07 :00 History 7.5-325 Tablet] 1 EACH Albuterol Sulfate [Proair Hfa] 8.5 gm IH DAILY PRN 11/25/16 03/01/17 03/01/17 07 :00 History 8.5 GM Acetaminophen [Tylenol] 500 mg PO Q6H PRN PRN #0 tablet 11/28/16 03/01/1703/01/ 17 07:00 Rx 500 MG Albuterol 2.5MG/Ipratrop 0.5MG 3 ml INH [id number] neb 11/28/16 03/01/17 03/01/17 07:00 Rx [Duoneb (A & A)] 3 ML Budesonide/Formoterol Inhaler 2 puff INH RTBID inhaler 11/28/16 03/01/17 07:00 Rx [Symbicort 160/4.5 Microgm Inhaler] 2 PUFF Fluticasone 50 Mcg Nasal [place] 1 spray ENRIQUE DAILY bottle 11/28/16 03/01/1703/01 07:00 Rx [Flonase] 1 SPRAY Montelukast [Singulair] 10 mg PO DAILY tablet 11/28/16 03/01/17 03/01/17 07:00 Rx 10 MG - History of Present Illness-Critical Care Nature of Presenting Problem: patient is a 61 y/o F that presents to the ER with possible allergic reaction. patient was at , received Rocephin injection. Patient then lost pulse, she had 5 minutes of CPR with chest compressions and had the Gomez device attach. She regained spontaneous pulse without any ACLS drugs. patient reports pain to chest, shortness of breath, and rash. Had previous reaction to medication in past. (Myles Dawson) patient is a 61 y/o F that presents to the ER with possible allergic reaction. patient was at , received Rocephin injection. Patient then lost pulse, she had 5 minutes of CPR with chest compressions and had the Gomez device attach. She regained spontaneous pulse without any ACLS drugs. patient reports pain to chest, shortness of breath, and rash. Had previous reaction to medication in past. (Matthieu Cruz) Review of Systems - Adult - REVIEW OF SYSTEMS - ADULT Constitutional: reports: no symptoms reported <Sj Mortensen - Last Filed: 03/01/17 16:47> - REVIEW OF SYSTEMS - ADULT ROS:: limited per condition Constitutional: reports: no symptoms reported Eyes: reports: no symptoms reported Ears, Nose, Mouth & Throat: denies: ear discharge, ear pain, sinus problem, throat pain, throat swelling Cardiovascular: reports: chest pain. denies: palpitations, syncope Respiratory: reports: shortness of breath, wheezing. denies: cough Gastrointestinal: denies: abdominal pain, diarrhea, nausea, vomiting Genitourinary: reports: no symptoms reported Musculoskeletal: denies: back pain, joint pain, neck pain Integumentary: reports: rash Neurological: reports: no symptoms reported Psychiatric: reports: no symptoms reported Endocrine: reports: no symptoms reported Hematologic/Lymphatic: reports: no symptoms reported Allergic/Immunologic: reports: no symptoms reported All Other Systems: Reviewed and Negative <Myles Dawson - Last Filed: 03/01/17 16:48> Past History - Adult - PAST MEDICAL HISTORY-ADULT Review of Records: reports: Nursing Assessment Review <Sj Mortensen - Last Filed: 03/01/17 16:47> - PAST MEDICAL HISTORY-ADULT Review of Records: reports: Old Records Reviewed, Nursing Assessment Review, Medications Reviewed Respiratory: reports: asthma, COPD Musculoskeletal: reports: chronic pain Other Conditions: reports: denies history - PRIOR SURGERIES/PROCEDURES Surgical/Procedure History: reports: hysterectomy, back/neck (neck) - PRIOR HOSPITALIZATIONS Prior Hospitalizations: reports: none - IMMUNIZATION STATUS Childhood Immunizations: See Nurse Assessment Flu Vaccine: See Nurse Assessment - FAMILY HISTORY Family History: reviewed, not pertinent - SOCIAL HISTORY Smoking: cigarettes, less than 1 pack/day Alcohol Use Frequency: every day Number of drinks per typical drinking period:: 3-4 drinks Living Situation: family <MaryjanekelyVijayReema Fitch - Last Filed: 03/01/17 16:48> Physical Exam-General - CONSTITUTIONAL General Appearance: alert <Sj Mortensen - Last Filed: 03/01/17 16:47> - PHYSICAL EXAM-ADULT Initial Vital Signs Reviewed: Yes - CONSTITUTIONAL General Appearance: alert, moderate distress, severe distress, anxious - EYES Eyes: PERRL/EOMI, pink conjunctivae - HEAD, EARS, NOSE, MOUTH & THROAT HENMT: normocephalic/atraumatic, moist mucous membranes, normal ENT inspection - NECK Neck: full range of motion, normal inspection - RESPIRATORY Respiratory: wheezing, increased rate, other (chest tender to watch) - CARDIOVASCULAR Cardiovascular: no JVD, no murmur, tachycardia - GASTROINTESTINAL (ABDOMEN) Abdominal Exam: normal bowel sounds, non tender, soft - MUSCULOSKELETAL Back Exam: no CVA tenderness, no vertebral tenderness Extremity: normal inspection, no pedal edema, normal capillary refill - SKIN Integumentary: warm/dry, rash (diffuse to abdomen) - PSYCHIATRIC Psych/Mental Status: oriented x 3, anxious <Myles Dawson - Last Filed: 03/01/17 16:48> Progress - PLAN OF CARE/RESULTS Result Diagrams: 03/01/17 15:34 03/01/17 15:34 <Sj Mortensen - Last Filed: 03/01/17 16:47> - PLAN OF CARE/RESULTS Result Diagrams: 03/01/17 15:34 03/01/17 15:34 - EKG 1 Time of EKG reading by physician:: 15:24 EKG Read and Signed by:: Myles Dawson EKG Interpretation (*Must complete 3 of following elements*): Abnormal Rate: 106 Rhythm: Sinus Tachycardia [place]: normal QRS: normal AR Interval: normal ST Wave: non-specific ST changes - CONSULTS/PCP/HOSPITALIST Notification #1 *Consult/PCP/Hospitalist*: Time Discussed: 16:40 Consult Disposition: Will see in ED - CHANGE OF SHIFT REPORT (ED Provider) Report Given and Care Transferred to:: Tone Mortensen PA-C Time of Transfer: 15:53 Items Pending: Labs, XRAY Results <Myles Dawson - Last Filed: 03/01/17 16:48> - PLAN OF CARE/RESULTS Progress/Plan/Lab Results: Vital Signs - 8 hr 03/01/17 15:23 03/01/17 15:56 Pulse Rate 108 H 88 Respiratory Rate 24 22 Blood Pressure 130/80 106/65 O2 Sat by Pulse Oximetry 98 94 L Laboratory Results - last 24 hr 03/01/17 03/01/17 03/01/17 15:34 15:34 15:34 WBC 27.61 H RBC 4.76 Hgb 15.5 Hct 44.6 MCV 93.7 MCH 32.6 H MCHC 34.8 RDW Std Deviation 13.3 Plt Count 165 MPV 10.9 H Immature Gran % (Auto) 4.0 H Neut % (Auto) 67.0 Lymph % (Auto) 22.8 [place] % (Auto) 4.9 Eos % (Auto) 0.9 Baso % (Auto) 0.4 Immature Gran # (Auto) 1.11 H Neut # (Auto) 18.50 H Lymph # (Auto) 6.29 H [place] # (Auto) 1.34 H Eos # (Auto) 0.25 Baso # (Auto) 0.12 PT INR PTT (Actin FS) Sodium 145 Potassium 3.5 Chloride 104 Carbon Dioxide 21 L Anion Gap 20 BUN 10 Creatinine 0.8 Estimated GFR/1.73 m2 > 60 BUN/Creatinine Ratio 13 Glucose 178 H Calculated Osmolality 292 Calcium 9.1 Magnesium 1.9 Total Bilirubin 0.32 AST 38 H ALT 43 H Alkaline Phosphatase 132 H Creatine Kinase 80 Troponin T Hcb-S-Nysfehrrslg Pept 167 Total Protein 6.4 Albumin 4.0 Globulin 2.4 Albumin/Globulin Ratio 1.7 03/01/17 03/01/17 15:34 15:34 WBC RBC Hgb Hct MCV MCH MCHC RDW Std Deviation Plt Count MPV Immature Gran % (Auto) Neut % (Auto) Lymph % (Auto) [place] % (Auto) Eos % (Auto) Baso % (Auto) Immature Gran # (Auto) Neut # (Auto) Lymph # (Auto) [place] # (Auto) Eos # (Auto) Baso # (Auto) PT 12.3 H INR 1.16 PTT (Actin FS) 28.4 Sodium Potassium Chloride Carbon Dioxide Anion Gap BUN Creatinine Estimated GFR/1.73 m2 BUN/Creatinine Ratio Glucose Calculated Osmolality Calcium Magnesium Total Bilirubin AST ALT Alkaline Phosphatase Creatine Kinase Troponin T < 0.010 Gpj-R-Aywqifmuwmk Pept Total Protein Albumin Globulin Albumin/Globulin Ratio Orders Category Date Time Status Admit - [facility] Routine AdmDCTranf 03/01/17 16:43 Ordered Activity - Bed Rest with BRP ORDERED Care 03/01/17 16:43 Active Cardiac Monitoring DIRECTED Care 03/01/17 15:30 Active Saline Loc NOW Care 03/01/17 15:30 Active Vital Signs Order ROUTINE Care 03/01/17 16:43 Active Z-Document. for Tele Applied ORDERED Care 03/01/17 16:44 Active Heart Healthy Diet Diet 03/01/17 16:44 Active CHEST-PORTABLE [RAD] Stat Exams 03/01/17 15:29 Completed BLOOD CULTURE [BLDCUL] Stat Lab 03/01/17 16:06 Uncollected CBC WITH ELECTRONIC DIFF [HEME] Stat Lab 03/01/17 15:34 Completed CK PROFILE [SP CHEM] Stat Lab 03/01/17 15:34 Completed COMPREHENSIVE METABOLIC PANEL [CHEM] Stat Lab 03/01/17 15:34 Completed LACTATE, PLASMA [CHEM] Stat Lab 03/01/17 16:06 Uncollected MAGNESIUM [CHEM] Stat Lab 03/01/17 15:34 Completed PRO B-NATRIURETIC PEPTIDE Stat Lab 03/01/17 15:34 Completed PROTIME WITH INR [COAG] Stat Lab 03/01/17 15:34 Completed PTT [COAG] Stat Lab 03/01/17 15:34 Completed TROPONIN T Stat Lab 03/01/17 15:34 Completed Acetaminophen [Tylenol] Med 03/01/17 16:43 Active 650 mg PO Q6H PRN PRN Diphenhydramine [Benadryl] Med 03/01/17 15:29 Discontinued 50 mg .ROUTE .STK-MED ONE Diphenhydramine [Benadryl] Med 03/01/17 15:30 Discontinued 50 mg IV NOW ONE Famotidine [Pepcid] Med 03/01/17 15:29 Discontinued 20 mg .ROUTE .STK-MED ONE Famotidine [Pepcid] Med 03/01/17 15:30 Discontinued 20 mg IV NOW ONE Levalbuterol Neb [Xopenex Neb] Med 03/01/17 15:30 Discontinued 1.25 mg INH NOW ONE Levofloxacin 500 mg/D5w [Levaquin 500 mg/D5w] Med 03/01/17 16:35 Active 500 mg in 100 ml IV NOW Methylprednisolone Sod Succ [Solu-Medrol] Med 03/01/17 15:28 Discontinued 125 mg .ROUTE .STK-MED ONE Methylprednisolone Sod Succ [Solu-Medrol] Med 03/01/17 15:30 Discontinued 125 mg IV NOW ONE Nitroglycerin Sl [Nitroglycerin] Med 03/01/17 16:05 Discontinued 0.4 mg .ROUTE .STK-MED ONE Ondansetron [Zofran] Med 03/01/17 16:43 Active 4 mg IV Q4H PRN PRN Sodium Chloride 0.9% Med 03/01/17 15:30 Discontinued 5 - 10 ml INJ NOW ONE Sodium Chloride 0.9% 10 ml Med 03/01/17 15:29 Discontinued .ROUTE As Directed Sodium Chloride 0.9% Neb [Ns Neb] Med 03/01/17 15:30 Active 5 ml INH DIRECTED Aerosol Treatments Routine Oth 03/01/17 15:31 Active Aerosol Treatments Stat Oth 03/01/17 15:31 Active Telemetry [OM.EQ] Routine Oth 03/01/17 16:43 Active EKG [EKG] Stat Ther 03/01/17 15:30 Draft Transfer/Admit Order [TRANSFER] Routine Transfer 03/01/17 16:45 Ordered Departure <Sj Mortensen - Last Filed: 03/01/17 16:47> - Departure Date of Disposition Decision: 03/01/17 Time of Disposition Decision: 16:46 Certified Medical Emergency: Emergent - Critical Care Note This patient required my direct & personal management of CC.: Yes Total Time (mins): 45 Critical Care Statement: This patient required my direct personal management to treat or rule out processes, the absence of which, could potentiallly result in sudden, clinically significant life or limb threatening deterioration. <Myles Dawson - Last Filed: 03/01/17 16:48> - Departure DIAGNOSIS: Allergic reaction, Cardiopulmonary arrest with successful resuscitation Disposition: ADMITTED INPATIENT 09 Condition: Critical Referrals and Follow-Ups: Naveed Lozano MD [Primary Care Provider] - Attestation - Physician/ YOHANA Attestation Patient care was provided by Advanced Practice Provider:: Yes Advanced Practice Provider:: Sj Mortensen Advanced Practice Provider documentation review:: The Mid-level provider documentation, treatment plan and medical decision making was reviewed by the physician who agrees with all treatment and medical decision making by the MLP. The physician spent face to face time with patient:: Yes Advanced Practice Provider documentation review:: The physician spent face to face time with this patient and agrees with all MLP documentation, treatment, and medical decision making by the MLP. See provider notes for further information. <Sj Mortensen - Last Filed: 03/01/17 16:47> This chart was documented by the indicated scribe, (Matthieu Cruz, Willam) and accurately reflects the services I performed and decisions made by Samir peterson Tom-Meka M., MD, as attested by the provider's signature.
[2017-03-01] MEDS ORDERED: NITROGLYCERIN ONE (16:05)
--- NOTE | 2017-03-01 16:11 | EKG Report ---
Test Performed on : 03/01/2017 3:24:35 PM Test Reason : Chest Pain Blood Pressure : / mmHG Vent. Rate : 106 BPM Atrial Rate : 106 BPM P-R Int : 150 ms QRS Dur : 068 ms QT Int : 350 ms P-R-T Axes : 078 064 065 degrees QTc Int : 464 ms Sinus tachycardia. Cannot rule out Inferior infarct , age undetermined Cannot rule out Anterior infarct (cited on or before 25-NOV-2016) Abnormal ECG When compared with ECG of 01-MAR-2017 15:24, (Unconfirmed) premature supraventricular complexes. are no longer present Unconfirmed Result
[2017-03-01 16:17] LABS: AGAP 20; ALKALINE PHOSPHATASE 132 U/L (32-104); BUN 10 mg/dL (8-22); CALCIUM 9.1 mg/dL (8.8-10.2); CHLORIDE 104 mmol/L (98-107); CK PROFILE 80 U/L (24-173); COSMO 292; GOT 38 U/L (10-30); GPT 43 U/L (10-36); MAGNESIUM 1.9 mg/dL (1.5-2.7); POTASSIUM 3.5 mmol/L (3.5-5.1); SODIUM 145 mmol/L (136-145); TCO2 21 mmol/L (25-35); TOTAL BILIRUBIN 0.32 mg/dL (0.20-1.00); TOTAL PROTEIN 6.4 g/dL (6.3-8.3)
[2017-03-01 16:18] LABS: INR 1.16; PROTIME 12.3 Seconds (9.2-11.7); PTT 28.4 Seconds (22.0-36.0)
--- NOTE | 2017-03-01 16:22 | Diag Imaging Result Doc PS360 ---
EXAM: CHEST-PORTABLE INDICATION: s/o cpr allergic reaction copd TECHNIQUE: One view COMPARISON: 11/27/2016 FINDINGS: There is evidence of prior granulomatous disease, stable. The lungs are grossly clear. There is no discrete pleural fluid collection or pneumothorax. The cardiomediastinal silhouette and central vasculature are grossly unremarkable. IMPRESSION: No evidence of acute pathology by plain radiograph. Electronically signed by Isidro Arriaza 03/01/2017 4:19 PM
[2017-03-01] MEDS ORDERED: LEVAQUIN 500 MG/D5W 500 MG/100 ML IVPB IV ONE (16:35)
[2017-03-01] MEDS ORDERED: TYLENOL PO PRN ×3 (16:43→18:25)
[2017-03-01] MEDS ORDERED: ZOFRAN IV PRN (16:43)
[2017-03-01] MEDS ORDERED: NORCO-7.5 PO PRN ×3 (17:07→18:25)
[2017-03-01] MEDS ORDERED: VENTOLIN HFA INH PRN ×2 (17:30→18:25)
--- NOTE | 2017-03-01 18:26 | HISTORY AND PHYSICAL ---
HISTORY OF PRESENT ILLNESS: Ms. Mares who is a 61-year-old white female, a known case of COPD who came to our office initially for the treatment of acute sinusitis, COPD with bronchitis. She was not improving. She was treated last week. She also had a risen or furuncle under the chin. This was draining. We decided to give her injection an Rocephin 1 g and injection Celestone 1.5 mL. She received the injections and after she received them, she came to talk to me in the office and when we talked, she said she was having some reaction and immediately she stopped breathing. She was resuscitated with the help of myself, the nurse came in and Dr. Anaya and we called 911. After the resuscitation, her color came back. The pulse and blood pressure came back; however, she was brought to the emergency room where she got completely improved. PAST MEDICAL HISTORY: She has a known case of COPD. PAST SURGICAL HISTORY: Hysterectomy. Cervical spine surgery. Cataract removal. MEDICATIONS: At present not known, but she was being treated for sinusitis. Other details of personal, past, and family history other than the COPD are noncontributory. PHYSICAL EXAMINATION: GENERAL: The patient is alert oriented. VITAL SIGNS: Reveal temperature normal, pulse 88, respiratory rate 22, blood pressure 106/65. HEENT: Head normocephalic. Pupils PERRLA. Fundus examination normal. Neck supple. JVP normal. ENT examination unremarkable. There is no evidence of lymphadenopathy, thyroid enlargement, pedal edema, calf tenderness, anemia, cyanosis or clubbing. Pedal pulses well felt. BREASTS: Normal, chest normal inspection. LUNGS: Reveal bilateral expiratory wheezing. PMI in the normal position. HEART: Sounds normal. No murmur, gallop or rub noted. ABDOMEN: Nondistended. Hernial orifices normal. No guarding, rigidity, free fluid, masses, or organomegaly. Bowel sounds normal. RECTAL: Deferred. DIRECTOR OF QUALITY/HIGHER FUNCTIONS: Patient is alert, oriented. Cranial nerves normal. Motor and sensory system examination unremarkable. Deep tendon reflexes normal. Plantars downgoing. Skull and spine examination normal for age. No cerebellar signs or signs of meningeal irritation. LOCOMOTOR: Completely unremarkable. CLINICAL IMPRESSION: Patient had acute cardiopulmonary arrest following allergic reaction with severe anaphylactic shock. This reaction was to Rocephin and she has chronic obstructive pulmonary disease. She has acute bronchitis and acute sinusitis. We will continue with the current management. cc: Naveed Lozano MD
[2017-03-01] MEDS: NICODERM PATCH TD SCH (19:08)
[2017-03-01] MEDS ORDERED: SYMBICORT 160/4.5 MICROGM INHALER INH SCH (19:30)
[2017-03-01] MEDS: SYMBICORT 160/4.5 MICROGM INHALER INH SCH (19:43)
[2017-03-01] MEDS: DUONEB (A & A) INH SCH (20:36)
[2017-03-01] MEDS ORDERED: DUONEB (A & A) INH SCH (21:00)
[2017-03-02] MEDS: DUONEB (A & A) INH SCH ×4 (04:51→21:38)
[2017-03-02] MEDS: SYMBICORT 160/4.5 MICROGM INHALER INH SCH ×2 (08:05→19:03)
[2017-03-02] MEDS ORDERED: SINGULAIR PO SCH (09:00)
[2017-03-02] MEDS ORDERED: FLONASE NAS SCH ×2 (09:00)
[2017-03-02] MEDS: NORCO-7.5 PO PRN ×3 (09:03→22:16)
[2017-03-02] MEDS: NICODERM PATCH TD SCH (09:04)
[2017-03-02] MEDS: FLONASE NAS SCH (09:04)
[2017-03-02] MEDS: SINGULAIR PO SCH (09:04)
--- NOTE | 2017-03-02 12:11 | PROGRESS NOTE ---
DATE: 03/02/2017 SUBJECTIVE: Ms. Mares is doing somewhat better. Her lactate level is high probably because she is staying in cardiopulmonary failure for awhile. Yesterday in the office, she was having severe chest pain. She had significant leukocytosis. Chest x-ray is however normal. We are going to try to get this culture from the wound today. Overall condition is slowly improving. cc: Naveed Lozano MD
[2017-03-02] MEDS: DILAUDID IV PRN (15:54)
[2017-03-03] MEDS: DILAUDID IV PRN ×3 (01:20→18:16)
[2017-03-03] MEDS: DUONEB (A & A) INH SCH ×4 (02:57→20:10)
[2017-03-03] MEDS: NORCO-7.5 PO PRN ×3 (05:23→23:05)
[2017-03-03] MEDS: NICODERM PATCH TD SCH (08:14)
[2017-03-03] MEDS: FLONASE NAS SCH (08:14)
[2017-03-03] MEDS: SINGULAIR PO SCH (08:15)
[2017-03-03] MEDS: SYMBICORT 160/4.5 MICROGM INHALER INH SCH ×2 (08:17→20:10)
--- NOTE | 2017-03-03 09:10 | PROGRESS NOTE ---
DATE: 03/03/2017 SUBJECTIVE: Ms. Mares is doing better. OBJECTIVE: Lungs: Her lungs are clear. Heart: Heart sounds are normal. Abdomen: Abdomen is soft, nontender. PLAN: We want to continue the Levaquin IV daily. Her ribs are still sore, however she is getting pain medication and it is improving. We will repeat CBC in the morning and decide about discharging her home tomorrow. -9 cc: Naveed Lozano MD
[2017-03-03] MEDS: LEVAQUIN 500 MG/D5W 500 MG/100 ML IVPB IV SCH (11:13)
[2017-03-04] MEDS: DUONEB (A & A) INH SCH ×2 (03:28→08:03)
[2017-03-04 06:41] LABS: MANUAL DIFF NEEDED? NO
[2017-03-04 06:51] LABS: BASO% 0.1 % (0.0-0.8); EOS# 0.07 X1000 (0.0-0.7); HEMATOCRIT 39.3 % (37.0-47.0); HEMOGLOBIN 13.2 g/dL (12.0-16.0); LYMPH# 1.93 X1000 (1.2-3.4); LYMPH% 26.9 % (20.5-51.1); MCH 31.8 PG (27-31); MCHC 33.6 g/dL (33-37); MCV 94.7 FL (81-99); MONO# 0.67 X1000 (0.11-0.59); MONO% 9.3 % (1.7-9.3); NEUT% 62.7 % (42.2-75.2); PLT 90 X1000 (130-400); RBC 4.15 XMIL (4.2-5.4)
[2017-03-04 06:59] LABS: AGAP 13; BUN 12 mg/dL (8-22); CALCIUM 9.1 mg/dL (8.8-10.2); CHLORIDE 99 mmol/L (98-107); COSMO 276; POTASSIUM 3.9 mmol/L (3.5-5.1); SODIUM 138 mmol/L (136-145); TCO2 26 mmol/L (25-35)
[2017-03-04] MEDS: SYMBICORT 160/4.5 MICROGM INHALER INH SCH (08:03)
[2017-03-04 08:17] VITALS: BP 117/70
[2017-03-04] MEDS: DILAUDID IV PRN (08:46)
[2017-03-04] MEDS: NICODERM PATCH TD SCH (08:51)
[2017-03-04] MEDS: LEVAQUIN 500 MG/D5W 500 MG/100 ML IVPB IV SCH (08:51)
[2017-03-04] MEDS: SINGULAIR PO SCH (08:51)
[2017-03-04] MEDS: FLONASE NAS SCH (08:55)
--- NOTE | 2017-03-04 10:12 | PROGRESS NOTE ---
DATE: 03/04/2017 SUBJECTIVE: Ms. Mares is doing better. Her CBC shows white count is normal now. She still is very sore in the chest. I will give her some pain medications, as well as Levaquin at home. FINAL DIAGNOSIS: 1. Acute bronchitis. 2. Chronic obstructive pulmonary disease. 3. Patient had anaphylactic shock to Rocephin. cc: Naveed Lozano MD
--- NOTE | 2017-03-04 16:53 | DISCHARGE SUMMARY ---
ADMISSION DATE: 03/01/2017 DISCHARGE DATE: 03/04/2017 FINAL DISCHARGE SUMMARY: Ms. Mares who is a 61-year-old white female was admitted 03/01/2017. Discharge date is 03/04/2017. Ms. Mares was admitted after she had severe anaphylactic shock with cardiopulmonary arrest. In the office, she had acute bronchitis and acute sinusitis. DIAGNOSTIC DATA: In the hospital, chest x-ray showed no evidence of acute pathology. There was some granulomatous disease. Lungs are clear otherwise. The EKG revealed sinus tachycardia. Could not rule out inferior myocardial infarction or anteroseptal wall myocardial infarction. CBC initially showed white count of 27.61. Repeat white count was 7.18. Hemoglobin was 15.5 and 13.2, INR was 1.16. Chemistry was unremarkable. The AST and ALT were slightly elevated. Alkaline phosphatase was 132, lactate was 3.2, all this because of the CPR that she had. Troponin levels were negative. COURSE IN THE HOSPITAL: She was treated here. She was given IV Solu-Medrol in the emergency room. Thereafter she was given Levaquin and she did well except that she had a lot of pain because of compression of the ribs during the CPR process. DISPOSITION: She is being discharged. FINAL DIAGNOSES: 1. Acute bronchitis. 2. Sinusitis. 3. Status post anaphylactic shock to Rocephin. DISCHARGE INSTRUCTIONS: She will be discharged today to be followed in the next week. I will give her Penelope 7.5 t.i.d. p.r.n., 45 tablets and Levaquin 500 mg daily for 5 days. cc: Naveed Lozano MD
== END 2017-03-04 11:07 | disposition home or self-care (01) ==
LOC: ED 15:22 → 3N 15:22 → OBSVTOIN 17:08
PROVIDERS: ADMIT Internal Medicine; ATTEND Internal Medicine

== ENCOUNTER 2018-11-23 10:42 | Inpatient (IN) ==
[2018-11-23] MEDS ORDERED: NORCO-10 PO PRN (12:11)
[2018-11-23] MEDS ORDERED: AMBIEN PO PRN (12:13)
--- NOTE | 2018-11-23 12:52 | EKG Report ---
Test Performed on : 11/23/2018 12:45:44 PM Test Reason : RUL MASS Blood Pressure : / mmHG Vent. Rate : 063 BPM Atrial Rate : 063 BPM P-R Int : 182 ms QRS Dur : 070 ms QT Int : 416 ms P-R-T Axes : 056 052 054 degrees QTc Int : 425 ms Normal sinus rhythm. Normal ECG When compared with ECG of 04-SEP-2018 13:17, Vent. rate has decreased BY 36 BPM T wave amplitude has increased in Anterior leads Confirmed by Blake CARMONA, Naveed ([id number]) on 11/23/2018 6:24:48 PM
[2018-11-23] MEDS ORDERED: ROCEPHIN 1 GM in NS 50 ML IV SCH (13:00)
[2018-11-23 13:14] LABS: BASO# 0.01 X1000 (0.0-0.2); BASO% 0.2 % (0.0-0.8); EOS# 0.12 X1000 (0.0-0.7); EOS% 2.4 % (0.0-10.0); HEMATOCRIT 38.6 % (37.0-47.0); HEMOGLOBIN 13.3 g/dL (12.0-16.0); LYMPH# 1.71 X1000 (1.2-3.4); LYMPH% 34.3 % (20.5-51.1); MCH 31.1 PG (27-31); MCHC 34.5 g/dL (33-37); MCV 90.2 FL (81-99); MPV 11.2 FL (7.4-10.4); NEUT# 2.75 X1000 (1.4-6.5); NEUT% 55.1 % (42.2-75.2); PLT 126 X1000 (130-400); RBC 4.28 XMIL (4.2-5.4); RDW 12.5 % (11.5-14.5); WBC 4.99 X1000 (4.8-10.8)
[2018-11-23 13:14] LABS: ALLEN TEST YES; BE 0.7 mmoll (-3.0-3.0); BLOOD TYPE ARTERIAL; HCO3-(ACT) 25.4 mmoll (20.0-26.0); METHB 1.2 % (0.0-1.5); O2(CT) 17.4 mL/dL (15.0-23.0); O2HB 92.7 % (95.0-99.0); PCO2(98.6) 35 mmHg (35-45); PO2(98.6) 77 mmHg (60-100); SAMPLE BLOOD; SAO2 98.1 % (95.0-100.0); THB 13.3 g/dL (11.5-17.4); pH(98.6) 7.45 (7.35-7.45)
[2018-11-23 13:37] LABS: AGAP 11; ALB/GLOB RATIO 1.3; ALKALINE PHOSPHATASE 91 U/L (32-104); BUN 11 mg/dL (8-22); CALCIUM 9.3 mg/dL (8.8-10.2); CHLORIDE 105 mmol/L (98-107); COSMO 283; CREATININE 0.6 mg/dL (0.5-0.9); ESTIMATED GFR > 60; GLUCOSE 99 mg/dL (70-104); GOT 23 U/L (10-30); GPT 20 U/L (10-36); SODIUM 142 mmol/L (136-145); TCO2 26 mmol/L (25-35); TOTAL BILIRUBIN 0.32 mg/dL (0.20-1.00)
[2018-11-23] MEDS ORDERED: DUONEB (A & A) INH SCH ×2 (15:00→21:00)
[2018-11-23] MEDS ORDERED: ALBUTEROL NEB ONE (15:05)
[2018-11-23] MEDS: NICODERM PATCH TD SCH (16:07)
[2018-11-23] MEDS: LEVAQUIN 750 MG/D5W 750 MG/150 ML IVPB IV SCH (16:07)
[2018-11-23] MEDS ORDERED: NS 500 ML ONE (16:11)
[2018-11-23 16:54] LABS: URINE SOURCE CLEAN CATCH
[2018-11-23 16:59] LABS: BILIRUBIN URINE NEGATIVE (NEGATIVE); BLOOD URINE NEGATIVE (NEGATIVE); COLOR STRAW; GLUCOSE URINE NEGATIVE (NEGATIVE); KETONE URINE NEGATIVE (NEGATIVE); LEUKOCYTES URINE NEGATIVE (NEGATIVE); NITRITE URINE NEGATIVE (NEGATIVE); PH URINE 7.5; PROTEIN URINE NEGATIVE (NEGATIVE); TURBIDITY URINE CLEAR (CLEAR); UROBILINOGEN URINE NORMAL (NORMAL)
[2018-11-23 17:01] LABS: UR EPITHELIAL CELLS <10 /HPF (<10); URINE BACTERIA NEGATIVE /HPF; URINE RBC <10 /HPF (<10); URINE WBC <10 /HPF (<10)
[2018-11-23] MEDS ORDERED: VENTOLIN HFA INH PRN (18:09)
[2018-11-23] MEDS ORDERED: ROBAXIN PO PRN (18:09)
[2018-11-23] MEDS ORDERED: NORCO-7.5 PO PRN (18:09)
[2018-11-23] MEDS ORDERED: SYMBICORT 160/4.5 MICROGM INHALER INH SCH ×2 (19:30→21:00)
[2018-11-23] MEDS: SYMBICORT 160/4.5 MICROGM INHALER INH SCH (21:20)
[2018-11-23] MEDS: DUONEB (A & A) INH SCH (21:20)
--- NOTE | 2018-11-23 21:55 | PULMONOLOGY CONSULTATION ---
DATE: 11/23/2018 REASON FOR CONSULTATION: Lung mass. REQUESTING PHYSICIAN: Naveed Lozano MD HISTORY OF PRESENT ILLNESS: Ms. Mares is a 63-year-old white female with a greater than 60 pack- year history for tobacco and ongoing tobacco use, who was treated for a right upper lobe pneumonia in August. This area was not present on chest x-ray in July. The patient developed shoulder pain and sternal pain and was evaluated by Dr. Carpenter, and underwent physical therapy. Her symptoms persisted and so she was evaluated by Dr. Mortensen, who had previously performed neck surgery. CT scan in October revealed a mass in the right upper lobe. She was referred back to Dr. Lozano, and a CT scan was repeated 11/17/2018 which revealed a 2.3 x 2.2 cm mass in the right upper lobe, with an area of central calcification suspicious for neoplasm. The patient has a cough productive of green sputum, but denies hemoptysis. She believes her weight has remained relatively stable. PAST MEDICAL HISTORY: Problem list: 1. COPD with ongoing tobacco use. 2. Chronic neck pain, status post neck surgery. 3. History of cataract surgery. 4. Status post hysterectomy. 5. History of gastritis. 6. History of deep vein thrombosis in both lower extremities in 01/2016. SOCIAL HISTORY: She is . Her had evidence of metastatic head and neck cancer. FAMILY HISTORY: Father at age 71 from cancer of unknown primary. REVIEW OF SYSTEMS: As noted in the HPI, otherwise negative. PHYSICAL EXAMINATION: General: Physical exam reveals a thin white female with a BMI less than 19. Vital Signs: Blood pressure 129/73, heart rate 68, respiratory rate 18, oxygen saturation 100% on room air. HEENT: Mild temporal wasting. EOMI. PERRL. Oropharynx is clear. Neck: Supple. Chest: Prolonged expiratory phase. Cardiac: S1, S2. Abdomen: Soft and without hepatosplenomegaly. Extremities: Without edema. DIAGNOSTIC DATA: CT scan of the thorax reveals emphysematous changes with a 2.3 x 2.2 cm mass in the right upper lobe. She has calcified hilar and mediastinal nodes, but no significant lymphadenopathy. LABORATORY DATA: White blood count 4.99, hemoglobin 13.8, platelet count 126,000. Electrolytes are within normal limits. CEA level is normal at 2.0. IMPRESSION: A 63-year-old with extensive tobacco history, with mass in the right upper lobe. The patient did not have a mass in July, and it is hoped that this represents a result of an infectious process; however, CT scan last month revealed a mass in this area and it has not resolved. The patient has extensive tobacco history. The patient has underlying chronic obstructive pulmonary disease. The patient has ongoing tobacco use. RECOMMENDATIONS: 1. CT-guided biopsy tomorrow. The risks were discussed which include bleeding, infection and pneumothorax. 2. I counseled the patient extensively about the need to discontinue tobacco. 3. Obtain pulmonary function studies. If this is a malignancy, we will need to evaluate her for possible resection. 4. Additional recommendations pending hospital course. cc: MD Naveed Weeks MD
[2018-11-24] MEDS: NORCO-7.5 PO PRN ×2 (00:04→12:35)
[2018-11-24] MEDS: DUONEB (A & A) INH SCH ×4 (03:12→21:20)
--- NOTE | 2018-11-24 07:24 | HISTORY AND PHYSICAL ---
HISTORY OF PRESENT ILLNESS: Ms. Mares who is a 63-year-old white female comes with lower neck pain and increasing shortness of breath, mild cough with expectoration. She was seen by Dr. Isidro Mortensen, who reviewed an MRI and on the MRI of the neck, there was a suspicion in the right apex. The CT scan of the chest was done by us, which revealed presence of a cavitary lesion, which looked like a mass. There were some granulomas and with calcified lymph glands. This whole area was a new appearance since the last CT scan of the chest. Ms. Mares has been a chronic heavy smoker, has been smoking for last 45 years. At present, she is smoking half a pack of cigarettes lately intermittently]because of frequent doctor visits. She has not been able to smoke. She does not drink. She is allergic to ceftriaxone. OTHER DETAILS OF PERSONAL, PAST AND FAMILY HISTORY: Noncontributory. PAST SURGICAL HISTORY: Reveals history of a plate put in the year [address] Isidro Mortensen in her cervical spine for degenerative disk disease. She also had a hysterectomy. Had cataract surgery. REVIEW OF SYSTEMS: Other than what has been mentioned, is noncontributory. The neck pain was coming probably from the chest as per Dr. Mortensen because he revaluated the cervical spine which was unremarkable. CURRENT MEDICATIONS: Include: Symbicort, DuoNeb, montelukast, nicotine patch and zolpidem or Ambien. PHYSICAL EXAMINATION: VITAL SIGNS: Reveal temperature normal, pulse 68 per minute, respiratory rate 18 per minute, blood pressure 129/73, HEENT: Head normocephalic. Pupils PERRLA. Fundus examination normal. NECK: Supple, JVP normal. ENT: Unremarkable. There is no evidence of lymphadenopathy, thyroid enlargement, pedal edema, calf tenderness, anemia, cyanosis or clubbing. Pedal pulses were felt. BREAST EXAM: Not done. CHEST: Normal inspection. LUNGS: Reveal some occasional wheezing. HEART: Heart sounds normal. No murmur, gallop or rub noted. ABDOMEN: Nondistended. Hernial orifices normal. No guarding, rigidity, free fluid, masses or organomegaly. Bowel sounds normal. RECTAL: Deferred. CENTRAL NERVOUS SYSTEM: Higher functions normal. Cranial nerves normal. Motor and sensory system examination unremarkable. Deep tendon reflexes normal. Plantars downgoing. Skull and spine examination normal for age. No cerebellar signs or signs of meningeal irritation, local motor exam. SKIN: Unremarkable. CLINICAL IMPRESSION: Chronic obstructive pulmonary disease. Patient has a newly appearing cavitary mass in the right back, so pneumonia and malignancy are strong possibilities. We will start IV Levaquin, get the blood cultures. Get a Pulmonary consult with Dr. Leos. cc: Naveed Lozano MD MTDD
[2018-11-24 07:53] LABS: INR 1.07; PROTIME 14.7 Seconds (11.0-16.0)
[2018-11-24 07:54] LABS: PTT 33.4 Seconds (22.3-41.8)
[2018-11-24] MEDS ORDERED: SINGULAIR PO SCH (09:00)
--- NOTE | 2018-11-24 09:20 | Diag Imaging Result Doc PS360 ---
EXAM: CHEST-2 VIEWS 11/24/2018 HISTORY: POST BIOPSY INS/EXP TECHNIQUE: Inspiratory expiratory chest COMMENT: There is a small pneumothorax measuring less than 6 mm in the right apex on the inspiratory view. The right upper lobe somewhat thick-walled cavity is noted. The surrounding opacity is actually slightly diminished since the previous study. Otherwise the appearance the chest has not changed appreciably since 09/07/2018. IMPRESSION: Small right apical pneumothorax. Electronically signed by Vivek Mosley 11/24/2018 9:18 AM
--- NOTE | 2018-11-24 09:48 | PROGRESS NOTE ---
DATE: 11/24/2018 Ms. Mares has a right upper lobe mass. She has COPD. Her ProTime is normal. She has gone for a CT-guided biopsy. -7 cc: Naveed Lozano MD
--- NOTE | 2018-11-24 09:51 | Diag Imaging Result Doc PS360 ---
EXAM: CT GUIDED BIOPSY LUNG 11/24/2018 HISTORY: non resolving lung mass TECHNIQUE: CT-guided biopsy of the right upper lobe. COMMENT: The risks and benefits of the procedure including the possibility of bleeding, infection, reaction to lidocaine, or pneumothorax were discussed with the patient and she agreed to the procedure. Following sterile preparation of the skin posteriorly and administration 1% lidocaine to the skin and deeper soft tissues, a coaxial 20-gauge Temno core biopsy needle was employed to obtain three cores from the lesion. There is a small apical pneumothorax following the biopsy. The patient tolerated the procedure well. IMPRESSION: Successful percutaneous biopsy of cavitary lesion in the right upper lobe, complicated by small pneumothorax. Electronically signed by Vivek Mosley 11/24/2018 9:49 AM
[2018-11-24] MEDS: ULTRAM PO PRN ×2 (09:59→19:22)
[2018-11-24] MEDS: FLONASE NAS SCH (09:59)
[2018-11-24] MEDS: SINGULAIR PO SCH (09:59)
[2018-11-24] MEDS: NICODERM PATCH TD SCH (09:59)
[2018-11-24] MEDS: SYMBICORT 160/4.5 MICROGM INHALER INH SCH ×2 (16:15→21:20)
[2018-11-24] MEDS: LEVAQUIN 750 MG/D5W 750 MG/150 ML IVPB IV SCH (16:44)
--- NOTE | 2018-11-24 21:13 | PULMONOLOGY PROGRESS NOTE ---
DATE: 11/24/2018 SUBJECTIVE: The patient reports some minor hemoptysis following biopsy today. She also reports some right-sided chest pain which has resolved. OBJECTIVE: Vital Signs: The patient has been afebrile for the last 24 hours. Blood pressure 103/52, heart rate 84, respiratory rate 16, oxygen saturation 98%. HEENT: Pupils are equal and reactive. Oropharynx appears clear. Neck: Supple. Chest: Reveals prolonged expiratory phase with symmetric breath sounds bilaterally. Cardiac: S1, S2. Abdomen: Soft. Extremities: Without edema. LABORATORIES: Chest x-ray reveals small pneumothorax measuring 6 mm in the right apex following the biopsy. IMPRESSION: A 63-year-old with: 1. Right upper lobe lung mass. 2. Small pneumothorax following biopsy. 3. Minor hemoptysis following biopsy. 4. Ongoing tobacco use at the time of discharge. RECOMMENDATIONS: 1. Watch Inspector smoking extensively about the need to discontinue tobacco. I did finally have her say that she would quit, although I am not sure she is committed to smoking cessation. 2. Followup chest x-ray for small pneumothorax tomorrow. 3. Consider discharge home if she is doing well. 4. Would consider a course of ciprofloxacin and clindamycin for 14 days each in the event that this may represent an infectious process. cc: MD Naveed Weeks MD
[2018-11-25] MEDS: NORCO-7.5 PO PRN ×2 (00:59→23:02)
[2018-11-25] MEDS: DUONEB (A & A) INH SCH ×4 (03:35→22:57)
[2018-11-25] MEDS: SYMBICORT 160/4.5 MICROGM INHALER INH SCH ×2 (07:30→22:57)
--- NOTE | 2018-11-25 07:42 | Diag Imaging Result Doc PS360 ---
EXAM: CHEST-2 VIEWS HISTORY: abnormal exam TECHNIQUE: Inspiratory and expiratory chest, two views COMPARISON: 11/24/2018 FINDINGS: There is now a large right-sided pneumothorax. There is partial collapse of the right lung. No midline shift on the inspiratory view although there is slight shift to the left on the expiratory view. No other interval change. IMPRESSION: Development of a large right-sided pneumothorax. This report was discussed with Dr. Dick Leos on 11/25/2018 at 7:35 AM and was readback. Electronically signed by Madi Donovan 11/25/2018 7:40 AM
[2018-11-25] MEDS: SINGULAIR PO SCH (10:10)
[2018-11-25] MEDS: NICODERM PATCH TD SCH (10:11)
[2018-11-25] MEDS: FLONASE NAS SCH (10:11)
[2018-11-25] MEDS ORDERED: XYLOCAINE 1%/EPI 1:100,000 ONE ×2 (12:20→17:26)
--- NOTE | 2018-11-25 14:53 | CONSULTATION ---
DATE OF CONSULTATION: 11/25/2018 HISTORY OF PRESENT ILLNESS: Ms. Randal Mares is a 63-year-old white female, who underwent a lung biopsy on 11/24/2018 by Radiology, and this morning's chest x-ray documented a pneumothorax. We were asked to evaluate her for possible placement of a chest tube. On exam, Ms. Randal Mares is a slim, otherwise healthy appearing white female, who is awake, cooperative, only slightly short of breath. Her heart has a regular rate. She has decreased breath sounds on the right; normal breath sounds on the left. Her abdomen is soft, nontender. She had no costovertebral tenderness. Rectal and vaginal exams were not performed. She does have palpable femoral pulses. No significant peripheral edema. Neurologically, she has no focal deficits. She is awake and cooperative. Chest x-ray documents pneumothorax of probably 50%. PLAN: Right chest tube in surgery with IV sedation and local anesthetic. I have discussed the procedure in detail with her, including the need for chest tube. We discussed risks of bleeding, infection, ongoing air leak, nonfunctioning chest tube requiring its removal and replacement. She understands the need for this chest tube and its risks, and wants to proceed. cc: MD Naveed Crespo MD
[2018-11-25] MEDS: LEVAQUIN 750 MG/D5W 750 MG/150 ML IVPB IV SCH (15:40)
[2018-11-25] MEDS ORDERED: FENTANYL ONE (17:40)
[2018-11-25] MEDS: DILAUDID ONE ×6 (18:05→18:35)
[2018-11-25] MEDS ORDERED: NORCO-7.5 ONE (18:22)
--- NOTE | 2018-11-25 18:41 | Diag Imaging Result Doc PS360 ---
EXAM: CHEST-PORTABLE HISTORY: right chest tube insertion TECHNIQUE: Chest single view COMPARISON: 11/25/2018 7:27 AM FINDINGS: A right-sided chest tube has been placed since the prior exam. There has been reexpansion of the right lung. No other interval change. . Electronically signed by Madi Donovan 11/25/2018 6:39 PM
--- NOTE | 2018-11-25 19:50 | OPERATIVE NOTE ---
PROCEDURE DATE: 11/25/2018 PREOPERATIVE DIAGNOSIS: Iatrogenic right pneumothorax. POSTOPERATIVE DIAGNOSIS: Iatrogenic right pneumothorax. PRINCIPAL PROCEDURE: Placement of #24-Gibraltarian right chest tube. SURGEON: Jess Haro MD. ANESTHESIA: IV sedation with local anesthetic. ESTIMATED BLOOD LOSS: 10 mL. DRAINS: A 24-Gibraltarian chest tube right chest. INDICATIONS: Ms. Randal Mares is a 63-year-old white female, had a cavitary lesion involving her right lung and it was biopsied by Radiology. This morning's chest x-ray documented a large pneumothorax and we felt we should place a right chest tube. DESCRIPTION OF PROCEDURE: The patient was brought to the operating room. She was placed in the sitting position on the operating room table and her right chest was prepped and draped within the sterile field. She received IV sedation, I also used local anesthetic. I made a small incision along the inframammary fold laterally with 11 blade scalpel and then above a rib through this incision I placed this 24-Gibraltarian chest tube into the right chest and directed it superiorly and anteriorly. It was secured to the skin with 0 silk ties and stitches and then dressings were applied. It was hooked to -20 cm of suction. She had a small air leak initially. A postprocedure chest x-ray in recovery room documented full expansion of her right lung and good placement of the right chest tube. She was resting comfortably in recovery room with plans for her to go to the floor. cc: MD Naveed Crespo MD
--- NOTE | 2018-11-25 20:51 | PULMONOLOGY PROGRESS NOTE ---
DATE: 11/25/2018 INTERIM HISTORY: The patient's x-ray this morning revealed a significant pneumothorax. Dr. Haro was consulted. Chest tube was placed in the right hemithorax with good reexpansion. SUBJECTIVE: The patient is awake, alert, and conversant. She has some post chest tube placement wall pain. OBJECTIVE: Vital Signs: Blood pressure 125/70, heart rate 75, respiratory rate 17, oxygen saturation 100%. HEENT: Pupils are equal and reactive. Oropharynx is clear. Neck: Is supple. Chest: Reveals good chest tube placement. Occasional bubbles seen with cough. Abdomen: Soft. Extremities: Without edema. IMPRESSION: 1. Lung mass. 2. Severe chronic obstructive pulmonary disease. 3. Status post lung biopsy. 4. Ongoing tobacco use. 5. Iatrogenic pneumothorax status post biopsy. RECOMMENDATIONS: 1. Await biopsy report. 2. Chest tube management per Dr. Avtar Haro. 3. Strongly encourage smoking cessation. 4. Continue current antibiotics pending results of biopsy. cc: MD Naveed Weeks MD
[2018-11-26] MEDS: DUONEB (A & A) INH SCH ×3 (03:43→15:45)
[2018-11-26] MEDS: NORCO-7.5 PO PRN ×3 (04:58→16:56)
--- NOTE | 2018-11-26 07:30 | Diag Imaging Result Doc PS360 ---
CHEST-PORTABLE - 11/26/2018 INDICATION: Chest Tube COMPARISON: 11/25/2018 FINDINGS: Stable right chest tube. No significant pneumothorax. Lung volumes are low. There is faint infiltrate or scarring in the right upper lobe. This is stable from prior. Heart size remains normal. IMPRESSION: No complication. Electronically signed by Nithin Gibson 11/26/2018 7:28 AM
[2018-11-26] MEDS: FLONASE NAS SCH (09:06)
[2018-11-26] MEDS: SINGULAIR PO SCH (09:06)
[2018-11-26] MEDS: NICODERM PATCH TD SCH (09:06)
[2018-11-26] MEDS: ULTRAM PO PRN (09:06)
[2018-11-26] MEDS: SYMBICORT 160/4.5 MICROGM INHALER INH SCH (09:14)
--- NOTE | 2018-11-26 09:25 | PROGRESS NOTE ---
DATE: 11/26/2018 SUBJECTIVE: The patient states that she has been having pain around her chest tube site. She was having pain in the right upper lobe even before the chest tube. OBJECTIVE: Vital Signs: Blood pressure is 108/54, respirations 18, pulse 84, temperature 98.2 degrees Fahrenheit. HEENT: She is normocephalic. EOMS intact. PERRLA. Throat clear. Lungs: Some scattered rales. He does have a chest tube down the right side. Heart: Regular rate and rhythm without murmurs, gallops, friction rubs. Abdomen: Soft. Active bowel sounds. No organomegaly or tenderness. Neurological exam: Intact grossly. LABS AND X-RAYS: No lab work back today. Chest x-ray shows stable right chest tube. No significant pneumothorax. Lung volumes are low. Faint scar in her infiltrate, right upper lobe, which is actually the mass that was biopsied or cavitary lesion. ASSESSMENT: 1. Lung mass/cavitary lesion, right upper lobe. 2. Chronic obstructive pulmonary disease. 3. Tobacco addiction. 4. Pneumothorax requiring chest tube. PLAN: Continue to support. cc: MD Naveed Barragan Jr, MD
--- NOTE | 2018-11-26 09:53 | PROGRESS NOTE ---
DATE: 11/26/2018 Ms. Mares is a 63-year-old white female who underwent a needle biopsy of a cavitary lesion right lung and developed a pneumothorax post procedure. Yesterday, I placed a 25 Maltese chest tube with complete re-expansion of her lung. We kept it on -20 cm of suction overnight and this morning, she had no air leak. This morning's chest x-ray suggests that her lung has remained expanded. I put her chest tube to water seal and we will try to remove this tube later today so that she can be discharged home. cc: MD Naveed Crespo MD
--- NOTE | 2018-11-26 14:47 | Diag Imaging Result Doc PS360 ---
CHEST-2 VIEWS - 11/26/2018 INDICATION: Removal R chest tube. COMPARISON: 11/26/2018 FINDINGS: There has been removal of the right chest tube. There is a trace residual hydropneumothorax. This is less than 5%. IMPRESSION: Trace residual hydropneumothorax. Electronically signed by Nithin Gibson 11/26/2018 2:44 PM
[2018-11-26 16:49] VITALS: BP 137/56
--- NOTE | 2018-11-26 18:55 | DISCHARGE SUMMARY ---
ADMISSION DATE: 11/23/2018 DISCHARGE DATE: 11/26/2018 ADMITTING DIAGNOSIS: 1. Chronic obstructive pulmonary disease. 2. Cavitary mass right lung. POSTOPERATIVE DIAGNOSES: 1. Chronic obstructive pulmonary disease. 2. Cavitary mass right lung. 3. Iatrogenic right pneumothorax. PRINCIPAL PROCEDURE: CT-guided lung biopsy 11/24/2018. Pulmonary consultation Dr. Leos. General surgery consultation Dr. Haro. Right chest tube 11/25/2018. DISCHARGE DIET: Is regular. DISCHARGE DISPOSITION: She will followup with Dr. Lozano, her primary care physician and Dr. Dick Leos because of her cavitary lesion. She does need her stitch removed from her right chest tube site. She will followup in our offices in 7 to 10 days. DISCHARGE MEDICATIONS: She is to return to her home medications. DISCHARGE DISABILITY: Full. HOSPITAL COURSE: Ms. Randal Mares is a 63-year-old white female patient Dr. Lozano who was admitted with known COPD but a new cavitary lesion right lung. Pulmonary was consulted, Dr. Dick Leos. A CT biopsy of her lung was performed 11/24/2018. The next morning it was noted that she had a iatrogenic pneumothorax. I placed a chest tube. This morning she had no air leak and I removed the chest tube and this afternoon a repeat chest x-ray essentially shows her lung remains inflated. It was felt safe to discharge her home this afternoon with followup with Dr. Lozano and Deric. If need be she will follow up with me to remove her suture right chest. She knows to contact us with any increasing chest pain or shortness of breath. She is to be discharged home on her regular medication. cc: MD Naveed Crespo MD
--- NOTE | 2018-11-26 20:03 | PULMONOLOGY PROGRESS NOTE ---
DATE: 11/26/2018 SUBJECTIVE: The patient is awake, alert and conversant. She reports she feels well. Her chest tube has been removed. She has been cleared for discharge. OBJECTIVE: The patient has been afebrile for the last 24 hours. Blood pressure 135/56, heart rate 82, respiratory rate 14, oxygen saturation 99% on room air. HEENT: Pupils are equal and reactive. Oropharynx is clear. Neck is supple. Chest reveals prolonged expiratory phase. No drainage from the chest tube site. Cardiac exam: Regular rate, normal S1, normal S2. Abdomen is soft and without hepatosplenomegaly. Extremities are without edema. IMPRESSION: 1. A 63-year-old with iatrogenic pneumothorax. 2. Lung mass. 3. Severe chronic obstructive pulmonary disease. 4. Ongoing tobacco use. RECOMMENDATIONS: 1. Agree with discharge today. I will follow up next week. 2. Await biopsy reports. 3. Anticipate this may be infectious. We will discharge on ciprofloxacin and clindamycin, given her drug allergies. 4. Smoking cessation was discussed at length. cc: MD Naveed Weeks MD
--- NOTE | 2018-11-28 12:47 | DISCHARGE SUMMARY ---
ADMISSION DATE: 11/23/2018 DISCHARGE DATE: 11/26/2018 Mrs. Mares is a 63-year-old white female who was admitted because of a mass lesion in the right apex of the lung. CT scan of the lung had revealed the mass and a CT-guided biopsy was done which revealed successful biopsy of the cavitary lesion that was complicated by a small pneumothorax. We repeated the chest x-ray. On 11/25/2018 chest x-ray had showed some increase in the pneumothorax. However, repeat chest x-ray on 11/26/2018 revealed only trace residue hydropneumothorax which was evaluated again by Dr. Leos who decided to send her home. Smoking cessation was strongly advised and it had been advised long time ago. IV antibiotics were given which were stopped and the biopsy report is not back yet. FINAL DIAGNOSES: 1. Mass lesion in the right apex. 2. Chronic obstructive pulmonary disease. PLAN: We will discharge her today on 11/26/2018. I will see her in the office in about 7 days and should have biopsy results by then. cc: Naveed Lozano MD
== END 2018-11-26 17:25 | disposition home or self-care (01) | DRG 204 ==
LOC: DIRADM 10:42 → 4N 11:49
PROVIDERS: ADMIT Internal Medicine; ATTEND Internal Medicine
CPT/HCPCS: 32405; 71010; 71020; 71045; 71046; 77012; 80053; 81001; 82378; 82805; 85025; 85610; 85730; 87040; 88305; 88312; 88313; 89220; 93005; 93010; 94060; 94375; 94640; 94726; 94729; 94760; 94761; A9270; J1170; J1956; J3010; J7040